=== PATIENT | female | born 1990 | race Caucasian/White ===

== ENCOUNTER → 2020-04-15 09:10 | Outpatient (BNVA) | payer OTHER, SELFPAY | PROVIDERS: Family Provider Family Medicine; PCP Family Medicine; Visit Provider Nurse Practitioner Psychiatric/Mental Health | DX: Z03.89 Encounter for observation for other suspected diseases and conditions ruled out (principal); Z79.899 Other long term (current) drug therapy | CPT/HCPCS: 80053; 80061; 82306; 82607; 83036; 84443 ==

== ENCOUNTER → 2021-06-29 09:31 | Outpatient (BNVA) | payer SELFPAY | PROVIDERS: Family Provider Family Medicine; PCP Family Medicine; Visit Provider Nurse Practitioner Psychiatric/Mental Health | DX: Z03.89 Encounter for observation for other suspected diseases and conditions ruled out (principal); F33.2 Major depressive disorder, recurrent severe without psychotic features; F15.21 Other stimulant dependence, in remission; F41.1 Generalized anxiety disorder | CPT/HCPCS: 80053; 80061; 83036 ==

== ENCOUNTER 2022-12-24 12:22 | Emergency (ER) | payer SELFPAY ==
--- NOTE | 2022-12-24 12:47 | ED_ITS ---
HPI - Extremity Injury (Upper) General: Chief Complaint: Wound/Laceration Stated Complaint: right hand thumb laceration Time Seen by Provider: 12/24/22 12:46 Source: patient Mode of arrival: ambulatory Limitations: no limitations History of Present Illness: Patient is a 32-year-old female [id number] individual here for concerns of a partial right thumb amputation that she sustained just prior to arrival after she got the distal end of her right thumb caught in a portion of tractor equipment that was spinning. Last tetanus is unknown. Bleeding controlled at this time. complaint: injury to: right and finger Onset (ago): hour(s) Other Extremity Injury: Right: fingers (thumb) Other injuries: none Handedness: right Place: home Severity: severe Relieving factors: none Exacerbating factors: none Context: direct blow, laceration and crush Associated symptoms: Reports no associated symptoms; Denies neck pain Review of Systems GI: Reports: nausea; Denies: abdominal pain, vomiting or diarrhea Musc: Reports: extremity pain (R thumb); Denies: neck pain, back pain, extremity swelling, joint pain or joint swelling Neuro: Denies: numbness in extremities or sensory changes [facility] ED PFSH: Medical History Amphetamine substance use disorder, moderate, in sustained remission Generalized anxiety disorder Major depressive disorder, recurrent severe without psychotic features Social History Smoking and tobacco/nicotine status: former use of tobacco/nicotine Physical Exam Const: COMMON NORMALS: average body habitus, patient oriented x3, no limitations, healthy appearing, alert and well nourished GENERAL APPEARANCE: cooperative and in distress (nauseous; in distress due to pain) ORIENTATION/CONSCIOUSNESS: Yes awake, Yes oriented to person, Yes oriented to place and Yes oriented to time Extremity: GENERAL: Yes normal exam except as noted RIGHT UPPER EXTREMITY: Yes hand & digits (see below) Right hand and digits: Yes neurovascular exam (normal) OTHER: Patient has a distal tip amputation to her right thumb involving her entire nail and distal phalanx. There is extensive damage to the underlying nailbed and exposed bone. Patient does have amputated portion on ice but there is nothing salvagable-tissue is significantly contused and non-viable. Neuro: COMMON NORMALS: patient oriented x3 SENSORIUM/ORIENTATION: Yes alert, Yes oriented to person, Yes oriented to place and Yes oriented to time Course Consultations: Consultation #1: Dr. Ramirez-agreed with plan to update tetanus, IV abx, irrigation/dress wound (wet to dry) and will see this week in office with plan for revision amputation Vital Signs: Vital signs: Vital Signs Temperature 98.3 F 12/24/22 12:53 Pulse Rate 71 12/24/22 12:53 Respiratory Rate 20 H 12/24/22 13:42 Blood Pressure 102/49 12/24/22 12:53 Pulse Oximetry 100 12/24/22 13:42 Oxygen Delivery Me thod Room Air 12/24/22 12:53 MDM - Extremity Injury (Upper) Medical Decision Making Patient here with a distal right thumb amputation. There is a comminuted fracture of the distal end of her distal phalanx. Soft tissue/nail amputation. Patient's tetanus was updated. She was given 2g IV Ancef. Wound was copiously irrigated. Wet-to-dry dressing was placed. I spoke to Dr. Ramirez who will follow-up in office this week with plan for revision amputation. Return to ED precautions given. She will be provided scripts for pain medications/antibiotics. Lab Data Radiology Impressions Finger X-Ray 12/24/22 12:53 IMPRESSION: Comminuted fracture of the distal end of the distal phalanx of the thumb with associated soft tissue amputation. All radiology interpretation(s) finalized by discharge Discharge Plan Discharge Patient Disposition: Home Clinical Impression: Amputation of finger of right hand including thumb Qualifiers: Encounter type: initial encounter Qualified Code(s): S68.119A - Complete traumatic metacarpophalangeal amputation of unspecified finger, initial encounter Condition: Stable Prescriptions: New hydrocodone-acetaminophen 5-325 mg tablet 1 tab PO Q6H PRN (Reason: pain) Qty: 14 0RF cephalexin 500 mg capsule 500 mg PO Q6H 7 Days Qty: 28 0RF No Action cholecalciferol (vitamin D3) 1,250 mcg (50,000 unit) capsule 1,250 mcg PO DAILY bupropion HCl [Wellbutrin XL] 150 mg tablet extended release 24 hr 150 mg PO QAM Qty: 30 4RF Rx Instructions: Take one tablet every morning bupropion HCl [Wellbutrin XL] 300 mg tablet extended release 24 hr 300 mg PO QAM Qty: 30 4RF Rx Instructions: Take one tablet every morning venlafaxine [Effexor XR] 150 mg capsule,extended release 24hr 150 mg PO QAM Qty: 30 4RF Rx Instructions: Take one capsule every morning venlafaxine [Effexor XR] 75 mg capsule,extended release 24hr 75 mg PO QAM Qty: 30 4RF Rx Instructions: Take one capsule every morning aripiprazole [Abilify] 2 mg tablet 2 mg PO .7 pm Qty: 30 4RF Rx Instructions: Take one tablet at 7 pm Discharge Orders: Discharge ED (Routine); Ordered 12/24/22 Ordered By: Pamella Serrano Patient Instructions: Opioid Safety, Pain Management Activity Restrictions/Additional Instructions: As we discussed keep wound clean with warm soap and water and continue to keep a wet to dry dressing on finger. Case management should reach out to you shortly to set you up with your follow up appointment with Dr. Ramirez this week. Plan will be for a revision/amputation. Use your pain medications as needed and start/fill your antibiotics immediately. Coding Level of Care Code ED [employer] for Andre Cortez
[2022-12-24 12:53] VITALS: BP 102/49; PULSE 71; RESP 18; TEMP 36.8; O2SAT 98
--- NOTE | 2022-12-24 12:53 | XRR_ITS ---
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 Views: Minimum 2 views. COMPARISON: No relevant prior studies available. FINDINGS: Bones/joints: There is a severely comminuted diastatic fracture of the distal half of the distal phalanx of the thumb with associated soft tissue amputation. The thumb is otherwise normal. Soft tissues: See Bones/joints finding. XR/XR finger RT min 2V 14098 IMPRESSION: Comminuted fracture of the distal end of the distal phalanx of the thumb with associated soft tissue amputation.
--- NOTE | 2022-12-24 13:24 | DCPLANNER ---
Referral was sent to ortho on 12/24 at 1326. Clinic to contact patient
[2022-12-24] MEDS: ondansetron 2 mg/ML SDV 2 mL 4 MG IVP (13:40)
[2022-12-24 13:42] VITALS: RESP 20; O2SAT 100
[2022-12-24] MEDS: morphine 4 mg/mL SDV 1 mL IVP (13:42)
[2022-12-24] MEDS: ceFAZolin 2,000 MG in sodium chloride 0.9% (plus) 50 ML 100 MG IV (13:45)
[2022-12-24] MEDS: tetanus-dipt-pertussis 0.5 mL SDV IM (13:51)
[2022-12-24 14:25] VITALS: RESP 20; O2SAT 99
[2022-12-24] MEDS: HYDROmorphone 1 mg/mL INJ 1 mL 0.5 MG IVP (14:25)
[2022-12-24 14:50] VITALS: BP 83/53; PULSE 69; O2SAT 100
== END 2022-12-24 15:27 | disposition home or self-care (01) ==
PROVIDERS: Emergency Provider Physician Assistant
DX: S68.011A Complete traumatic metacarpophalangeal amputation of right thumb, initial encounter (principal); Z87.891 Personal history of nicotine dependence; W30.9XXA Contact with unspecified agricultural machinery, initial encounter; Z23 Encounter for immunization
CPT/HCPCS: 73140; 90471; 90715; 96365; 96375; 99284; J0690; J1170; J2270; J2405

== ENCOUNTER 2022-12-26 13:55 | Day surgery (SDC) | payer SELFPAY ==
[2022-12-26] VITALS (7 sets, daily range): BP systolic 120–136; BP diastolic 79–91; PULSE 68–106; RESP 16–18; TEMP 36.1–37.1; O2SAT 95–100; BMI 27.3
--- NOTE | 2022-12-26 | XR_ITS ---
WS: [id number] Exam: XR finger RT min 2V 90700 Date/Time of Exam: 12/26/2022 12:00 AM Reason For Exam: TOBIAS PICS C ARM images of the RIGHT thumb were obtained for intraoperative purposes.
[2022-12-26 14:27] LABS: OR HCG Qualitative Urine Negative (Negative)
[2022-12-26] MEDS: sodium chloride 0.9% 1,000 ML 30 ML IV (14:35)
[2022-12-26] MEDS: HYDROmorphone 1 mg/mL INJ 1 mL 0.5 MG IVP (14:37)
[2022-12-26] MEDS: ketorolac 30 mg/mL INJ IVP (15:40)
[2022-12-26] MEDS: acetaminophen 1,000 MG/100 ML PIGGYBACK 400 MG IV (15:42)
--- NOTE | 2022-12-26 15:42 | W.PM.OPSUD ---
Surgery/Procedure H&P Update DATE OF PROCEDURE: December 26, 2022 DATE H&P PERFORMED: 12/25/22 H&P UPDATE INFORMATION: I have reviewed H&P completed within last 30 days, I have examined patient prior to procedure and No changes to prior documentation PREOP DIAGNOSIS: Right thumb traumatic amputation PRIMARY INDICATION FOR PROCEDURE: Right thumb traumatic amputation PLANNED PROCEDURE: Operation Date: 12/26/22 16:30 Proposed Procedures p Right Thumb Debridement Upper Extremity And Irrigation(Right) - DO catalina Reid Right Thumb revision Amputation Finger(Right) - Cedric Ramirez DO
--- NOTE | 2022-12-26 16:35 | ANES.PREANE2 ---
Pre-Anesthetic Assessment Height/Weight: Height 1.75 m Weight 83.915 kg Temp Pulse Resp BP Pulse Ox O2 Del Method 98.7 F 85 16 132/79 98 Room Air 12/26/22 14:15 12/26/22 14:15 12/26/22 14:37 12/26/22 14:15 12/26/22 14:37 12/26/22 14:15 Preop Diagnosis: Right thumb traumatic amputation Operation Date: 12/26/22 16:30 Proposed Procedures p Right Thumb Debridement Upper Extremity And Irrigation(Right) - Cedric Ramirez DO s Right Thumb revision Amputation Finger(Right) - Cedric Ramirez DO Familial anesthetic complications: none Was Beta Kalie taken within 24 hours: N/A Was Clonidine taken within 24 hours: N/A Last intake: Intake Last Liquid Date 12/26/22 Last Liquid Time 10:30 Last Solid Date 12/25/22 Last Solid Time 19:00 Social No alcohol and No tobacco h/o amphetamine Exam alert, oriented x 3, clear to auscultation bilaterally and regular rate & rhythm Airway Submandibular: within normal limits Cervical ROM: within normal limits Mallampati: Class II Dentition: chipped Neuropsych Anxiety and Depression Anesthetic Plan ASA status: 2 Anesthesia: General Medications/Allergies Home Medications Medication Instructions Recorded Confirmed Last Taken Type cholecalciferol (vitamin D3) 1,250 1,250 mcg PO DAILY 04/29/19 12/26/22 12/26/22 History mcg (50,000 unit) capsule aripiprazole 2 mg tablet (Abilify) 2 mg PO .7 pm #30 tabs 02/01/22 12/26/22 12/25/22 Rx bupropion HCl 300 mg 24 hr tablet, 300 mg PO QAM #30 tabs 02/01/22 12/26/22 12/26/22 Rx extended release (Wellbutrin XL) venlafaxine 150 mg 150 mg PO QAM #30 caps 02/01/22 12/26/22 12/26/22 Rx capsule,extended release 24 hr (Effexor XR) venlafaxine 75 mg capsule,extended 75 mg PO QAM #30 caps 02/01/22 12/26/22 12/26/22 Rx release 24 hr (Effexor XR) cephalexin 500 mg capsule 500 mg PO Q6H 7 days #28 caps 12/24/22 12/26/22 12/26/22 Rx hydrocodone 10 mg-acetaminophen 1 tab PO Q6H PRN pain #20 tabs 12/26/22 Unknown Rx 325 mg tablet ondansetron 4 mg disintegrating 4 mg PO Q8H PRN nausea and 12/26/22 Unknown Rx tablet vomiting 3 days #9 tabs Allergies Allergy/AdvReac Type Severity Reaction Status Date / Time No Known Allergies Allergy Verified 12/26/22 14:11 Current Medications Generic Name Dose Route Start Last Admin Trade Name Leninq PRN Reason Stop Dose Admin Hydromorphone HCl 0.5 mg 12/26/22 14:03 12/26/22 14:37 Hydromorphone 1 Mg/Ml Inj 1 Ml IVP 0.5 mg ONCE PRN Administration Phase II postop pain Sodium Chloride 1,000 mls @ 30 mls/hr 12/26/22 14:15 12/26/22 14:35 Sodium Chloride 0.9% IV 12/27/22 14:14 30 mls/hr .Q24H ROSY Administration PFSH Anesthesia Medical History Amphetamine substance use disorder, moderate, in sustained remission Generalized anxiety disorder Major depressive disorder, recurrent severe without psychotic features Social History Smoking and tobacco/nicotine status: former use of tobacco/nicotine Female Reproductive History Date of last menstrual period: 12/19/22 Data Anesthesia Cardiac Studies: No Data to Display
[2022-12-26] MEDS: ceFAZolin 2,000 MG in sodium chloride 0.9% (plus) 50 ML 100 MG IV (17:02)
[2022-12-26] MEDS: ceFAZolin 1,000 mg SDV 1000 MG IRRIGATION (17:33)
--- NOTE | 2022-12-26 18:23 | W.PM.BPON ---
Date of Procedure: [December 26, 2022] Surgeon: [Dr. Ramirez, DO] Automotive Parts Advisor(s): [Petr Ramirez physician associate] Procedure(s) performed: [Right thumb irrigation and debridement with revision amputation, Rotational flap closure] Findings of the procedure(s): [Traumatic amputation distal phalanx of right thumb] Estimated blood loss: [1 mL] Specimen(s) removed: [Bone fragments of distal phalanx not sent for testing] Post-operative diagnosis: [Traumatic amputation distal phalanx of right thumb]
--- NOTE | 2022-12-26 18:27 | PM.PACU ---
PACU note Narrative: Patient is a 32-year-old female just underwent a revised amputation of right thumb. Patient transferred to PACU in stable condition. Pain is well controlled. Dressing and splint on hand is dry and in place. Patient's other fingers are warm and well-perfused. Patient can wiggle fingers. normal cap refill under 2 seconds. Patient has normal elbow range of motion. Unable to assess sensation due to residual localized anesthetic. Exam: awake Disposition: discharged
--- NOTE | 2022-12-26 18:30 | PM.OP ---
Operative Report Date of procedure: December 26, 2022 Pre-op diagnosis: Right thumb traumatic amputation distal tip Post-op diagnosis: Same, with comminution distal phalanx, disruption of germinal matrix right thumb Post-op findings: See operative report Procedure done: Right thumb irrigation & debridement (2cm x 1cmx 0.5cm) skin subcutaneous tissue fat and bone Right thumb revision amputation Right thumb rotational skin flap closure Specimens removed/disposition: Distal phalanx bony fragments excised as well as nonviablel skin Surgeon: Cedric Ramirez DO Addiction Treatment Counselor: Petr Ramirez PA-C: ARTEM was necessary for assistance in this case with execution of the procedure with appropriate thumb positioning as well as skin retraction as well as assistance in wound closure and dressing application Estimated blood loss (mL): 1 44mins IV fluids: See anesthesia record Complications: None Findings: See operative report Condition: stable Disposition: same day Brief History: Patient presents to the office today outpatient setting for workup of her right thumb traumatic amputation at the distal phalanx this is distal to the DIP joint as well as appears to be distal to the FPL and EPL tendon insertions. Open wound noted with a radial oblique amputation and a prominent volar flap. We talked about treatment options at this point in time given the multiple fracture fragments and exposed bone will recommend a right thumb irrigation debridement possible revision amputation we talked about this in detail patient is very active and needs to get back to working she would like to just have a revision amputation with primary closure if possible. Talked about this and possible flap closures understanding risk of surgery she elects proceed all questions answered at this time is here today to proceed with a right thumb irrigation and debridement with possible revision amputation. Procedure: Patient seen evaluated preoperative holding area. Consent was reviewed and signed with patient correct extremity/digit was marked. Patient is evaluated by anesthesia once cleared for surgery she was taken back to the operative suite she was placed in The [facility] in Supine Position Armboard Applied to the Right Upper Extremity Nonsterile Tourniquet Applied to the Right Upper Arm. Patient Underwent Anesthesia per the HD Department Wound Appropriately Anesthetized the Patient Was Prepped and Draped in Standard Orthopedic Fashion. Final Timeout Performed. Patient Received Appropriate Preoperative Antibiotics. Patient under Sterile Aseptic Technique Underwent a Right Thumb Digital Block. I Utilized a Sterile Turnicot at the Base of the Finger for My Procedure. Finger turnicot was placed. I then began my evaluation of the traumatic amputation. Patient had a radial oblique nature that went directly through the germinal matrix there was some remanent of the matrix noted. At this point in time in order to prevent a nail deformity complete matrix excision through sharp scalpel excision as well as electrocautery was used to burn any remanent of the germinal matrix. I then evaluated the bony fragments. All sharp loose devitalized bony fragments were excised I performed a standard irrigation debridement of all nonviable tissue of skin subcutaneous tissue fascia as well as bone. The size was roughly 2 cm x 1 cm x 0.5 cm at this point in time I removed the bony fragments of the remanent of the stump did have multiple sharp edges I utilized a rongeur as well as a rasp to contour this and as well as to shorten this below the soft tissue amputation to accommodate for possible closure primarily. I took this back to the bases of where the tendinous insertions both of the EPL and FPL were as well as to accommodate for DIP motion still. At this point in time I then thoroughly irrigated the wound bed. I performed traction neurectomies of the digital nerves distally as well as electrocautery with bipolar of the neurovascular structures distally. At this point in time patient had a flap both volar and radial and as result I had to perform some releases and was able to perform a rotational flap of the remanent of viable tissue for appropriate well-padded closure once this was appeared to be appropriate size, finger turnicot was removed hemostasis satisfactory. I then placed simple interrupted nylon stitches to close the incision site. I then subsequently placed Xeroform 4 x 4's Curlex/soft roll as well as a padded splint. Patient was then subsequently awakened from anesthesia and taken to PACU in stable condition. Disposition: Patient taken back in stable condition recovering well. Patient will receive appropriate discharge instruction as well as pain medication postoperatively she will follow-up with me in the office in roughly 2 weeks for suture removal. Patient understands agrees with current plan. Questions answered.
[2022-12-26] MEDS: HYDROcodone-acetaminophen 10-325 mg Tablet 1 TAB PO (18:43)
--- NOTE | 2022-12-26 22:33 | ANE.PACU2 ---
Inpatient post-anesthesia follow up: Airway intact: Yes Vital signs: Temperature 98.7 F Pulse Rate 68 Respiratory Rate 16 Blood Pressure 133/91 Pulse Oximetry 98 Oxygen Delivery Me thod Room Air Oxygen Flow Rate Fraction of Inspir ed Oxygen Hydration adequate: Yes Nausea and vomiting: No Pain level: 1 Mental status: Baseline
== END 2022-12-26 19:11 | disposition home or self-care (01) ==
PROVIDERS: Anesthesiology; Visit Provider Student in an Organized Health Care Education/Training Program
PROC: (CPT 26952; principal; 2022-12-26 16:10)
PROC: (CPT 26951; 2022-12-26 16:10)
DX: S68.118A Complete traumatic metacarpophalangeal amputation of other finger, initial encounter (principal); W23.0XXA Caught, crushed, jammed, or pinched between moving objects, initial encounter
CPT/HCPCS: 26952; 73140; 76000; 81025; 84703; J0131; J0690; J1170; J1885; J2405; J3010; J7030

== ENCOUNTER 2024-07-11 12:26 | Emergency (ER) | payer SELFPAY ==
[2024-07-11] VITALS (9 sets, daily range): BP systolic 120–133; BP diastolic 71–83; PULSE 84–116; RESP 17–20; TEMP 36.9; O2SAT 95–100
--- NOTE | 2024-07-11 13:26 | XRR_ITS ---
PROCEDURE INFORMATION: Exam: XR Lumbosacral Spine Exam date and time: 07/11/2024 2:18 PM Age: 34 years old Clinical indication: Low back pain and lumbago with sciatica; Bilateral; Prior surgery; Surgery date: 6+ months; Surgery type: (x2); PT states severe low back pain that shoots down both legs to feet, inability to move lt foot, no known injury; Additional info: Lower back pain TECHNIQUE: Imaging protocol: Radiologic exam of the lumbosacral spine. Views: 2 or 3 views. COMPARISON: No relevant prior studies available. FINDINGS: Bones/joints: Visualized bony cortical margins and articulations appear to be intact and in the range of normal. No acute fracture. Minimal convexity of the thoracolumbar spine is directed to the right centering in the upper lumbar region. Soft tissues: Unremarkable. Other findings: A markedly prominent amount of granular stool like debris is seen along the ascending and transverse portions of the colon and less so in the rectosigmoid region. This does somewhat obscure bony detail particularly on the frontal projection. XR/XR lumbar spine 2-3V* [id number] IMPRESSION: 1. No acute osseous plain-film findings. 2. Prominent stool burden.
--- NOTE | 2024-07-11 13:26 | XRR_ITS ---
PROCEDURE INFORMATION: Exam: XR Chest Exam date and time: 07/11/2024 2:03 PM Age: 34 years old Clinical indication: On breathing; PT states severe upper back pain that worsens while breathing, making it difficult to achieve full inspiration; Additional info: Rib pain TECHNIQUE: Imaging protocol: Radiologic exam of the chest. Views: 2 views. COMPARISON: No relevant prior studies available. FINDINGS: Lungs: Blunting of the left costophrenic angle is noted on frontal and lateral views. Also seen is a vague area of increased density along the periphery of the left upper to mid lung region measuring approximately 2 cm in size. This overlies the anterior aspects of the 2nd and 3rd ribs. No consolidation. Pleural spaces: The right costophrenic angle is well defined on frontal and lateral views. Blunting of the left costophrenic angle is noted. No pneumothorax. Heart/Mediastinum: Mild prominence of the cardiac silhouette is seen which may be due in part to epicardial lipomatous collections/fat pads. Bones/joints: Suspected pathologic fracture noted along the posterolateral aspect of the left 3rd rib corresponding with the aforementioned pleural like increased density. Other findings: Overlying soft tissues are prominent and obscure resolution due to diminished penetration. XR/XR chest 2V* [id number] IMPRESSION: 1. Left posterolateral 3rd rib pathologic fracture with associated pleural thickening question neoplasia/metastatic disease versus subacute posttraumatic etiology warranting further clinical correlation and follow-up. 2. Mild left pleural effusion.
[2024-07-11] MEDS: oxyCODONE-APAP 5-325 mg Tablet 1 TAB PO (13:43)
[2024-07-11] MEDS: ketorolac 30 mg/mL INJ 60 MG IM (13:44)
[2024-07-11] MEDS: methocarbamol 750 mg Tablet 1500 MG PO (13:44)
--- NOTE | 2024-07-11 13:45 | ECG_ITS ---
Geckoboard Test Date: 2024-07-11 Pat Name: Mariella Tinajero Department: Room: Gender: Female Manager Of Financial Reporting: : 1990 Requested By: Jose Marie Order Number: [id number] Reading MD: MARITZA LOOMIS Measurements Intervals [place] Rate: 109 P: 57 IA: 133 QRS: 64 QRSD: 94 T: 14 QT: 317 QTc: 428 Interpretive Statements SINUS TACHYCARDIA LEFT ATRIAL ENLARGEMENT [-0.15mV P-WAVE IN V1/V2] POSSIBLE RIGHT VENTRICULAR CONDUCTION DELAY [RSR (QR) IN V1/V2] NONSPECIFIC T-WAVE ABNORMALITY No previous ECG available for comparison Electronically Signed On 07-13-2024 19:06:28 CDT by MARITZA LOOMIS [email or web address]
--- NOTE | 2024-07-11 14:30 | W.ED.BACK ---
HPI - Back Pain/Injury General: Chief Complaint: Back Pain/Injury Stated Complaint: shooting pains through out from neck down Time Seen by Provider: 07/11/24 12:44 History of Present Illness: 34-year-old female is presenting with lower back pain for the past 2 weeks denies any associated falls or trauma, pain rating into bilateral lower extremities thighs, some numbness and weakness in the left lower extremity but no bowel or bladder incontinence no fever or chills. She took veterinary dexamethasone and NSAIDs without any improvement in her symptoms. She took a Robaxin without improvement and her doctor prescribed her prednisone which she started taking over the past 3 days without improvement as well. She states now the pain is going up her thoracic back and rating into her left chest and so she presents for evaluation. She also reports bilateral lower extremity edema and this is new for her. She denies any shortness of breath denies any abdominal pain nausea vomiting diarrhea or urinary symptoms. Related Data Home Medications ?Medication ?Instructions ?Recorded ?Confirmed prednisone 20 mg tablet 20 mg PO QAM x10d 07/11/24 07/11/24 Previous Rx's ?Medication ?Instructions ?Recorded bupropion HCl 300 mg 24 hr tablet, 300 mg PO QAM #30 tabs 02/01/22 extended release (Wellbutrin XL) venlafaxine 150 mg 150 mg PO QAM #30 caps 02/01/22 capsule,extended release 24 hr (Effexor XR) Allergies Allergy/AdvReac Type Severity Reaction Status Date / Time No Known Allergies Allergy Verified 02/28/23 09:17 Review of Systems Narrative: Const: no fever, no chills Skin: no rashes Eyes: denies blurry vision ENMT: denies nasal congestion, throat pain Card: + chest pain, no palpitations, + edema Resp: no shortness of breath, no cough GI: no abdominal pain, no nausea, no vomiting, no diarrhea : no urinary frequency, no urgency, no dysuria, no flank pain Musc: no neck pain, + back pain Neuro: no headache(s), no confusion, + numbness, + motor weakness [facility] PFSH: Medical History Amphetamine substance use disorder, moderate, in sustained remission Generalized anxiety disorder Major depressive disorder, recurrent severe without psychotic features Social History Smoking and tobacco/nicotine status: former use of tobacco/nicotine Alcohol intake: current Alcohol intake frequency: holidays/special occasions only Physical Exam Narrative: EXAM NARRATIVE: PHYSICAL EXAM GEN: +uncomfortable from pain, poor hygiene Head: normocephalic, atraumatic Eyes: pupils, equal, round and reactive to light, extraocular movements are intact, no conjunctival redness or discharge. Ears: external ears are normal. Nose: Normal nares. Mouth and throat: MMM. Normal gums, mucosa, palate. NECK: no midline c spine tenderness, Supple, with no masses. CV: RRR, no m/r/g. LUNGS: CTAB, no w/r/c. ABD: Soft, NT/ND, NBS, no masses or organomegaly. SKIN: Warm, well perfused. No skin rashes or abnormal lesions. MSK: diffuse tenderness of lower thoracic and lumbar but no obvious midline t or l spine tenderness, able to straight leg raise bilaterally albeit limited in LLE due to pain otherwise extremities No deformity, no tenderness, normal ROM, no edema NEURO: alert and oriented x 3, normal speech, +LLE strength limited by pain, some numbnessin LLE although able to feel light touch otherwise no motor or sensory deficits, no focal neuro deficits. PSYCH: Good Judgment. Pleasant, cooperative. appropriate mood. Course Reevaluation(s): Reevaluation #1: Workup remarkable for multiple pelvic fractures including bilateral sacral alar fracture and right sided pelvis inferior and superior pubic rami fractures, she has a questionable deformity of the C7 vertebra, she has left third rib fractures 9 rib fracture on the right, I spoke with the patient multiple times including by herself she denies any falls or significant trauma that would have led to this. She has no blood clotting disorders no bleeding diathesis. Her labs demonstrate mild lead decreased platelets, elevated transaminase's, she does have some elevation proBNP and some dilatation of her right pulmonary artery but no PEs. MRI of the lumbar spine demonstrates spinal epidural hematoma versus fluid collection from S2-L2, as we do not have neurosurgery here patient is plan to transfer. [facility] does not have any beds available, case discussed with neurosurgery Dr. Coronel who recommends discussion with ER team at [facility], Case discussed with ER Dr. Randolph who accepts patient for transfer from ED to ED. Time: 19:23 Vital Signs: Vital signs: Vital Signs Temperature 98.4 F 07/11/24 12:34 Pulse Rate 96 07/11/24 18:15 Respiratory Rate 20 H 07/11/24 18:15 Blood Pressure 123/83 07/11/24 18:15 Pulse Oximetry 98 07/11/24 18:15 Oxygen Delivery Me thod Room Air 07/11/24 18:15 MDM - Back Pain/Injury Medical Decision Making Patient initially evaluated with a chest x-ray and lumbar x-ray given no history of trauma and given a dose of IM Toradol, Robaxin and pain medicine which reduced her pain somewhat however upon standing and twisting her pain returned. Additional imaging of the chest x-ray demonstrated a ?Pathologic left third rib fracture and so additional imaging with CT chest abdomen pelvis performed. Given her persistent numbness and weakness in the left lower extremity MRI of the thoracic and lumbar spine added. Labs 07/11/24 14:58 07/11/24 14:58 Radiology Impressions Chest X-Ray 07/11/24 13:26 IMPRESSION: 1. Left posterolateral 3rd rib pathologic fracture with associated pleural thickening question neoplasia/metastatic disease versus subacute posttraumatic etiology warranting further clinical correlation and follow-up. 2. Mild left pleural effusion. Lumbar Spine X-Ray 07/11/24 13:26 IMPRESSION: 1. No acute osseous plain-film findings. 2. Prominent stool burden. Chest/Abdomen/Pelvis CT 07/11/24 15:42 IMPRESSION: 1. Comminuted moderately displaced left lateral 3rd rib fracture with likely small pulmonary contusion involving the subjacent lung. Mild pleural thickening also seen in the vicinity which may be posttraumatic. 2. Nondisplaced right posterior 9th rib fracture appears subacute with some periosteal new bone formation. 3. Bibasilar opacities favor atelectasis. Superimposed infection not entirely excluded. 4. Trace left pleural fluid. 5. Mildly dilated main pulmonary artery can be seen with pulmonary hypertension. IMPRESSION: 1. Comminuted, mildly displaced fracture of the left sacral ala with extension to the sacroiliac joint. 2. Nondisplaced fracture of the right sacral ala with extension of the sacroiliac joint. 3. Comminuted fracture of the right superior pubic ramus with adjacent hematoma. 4. Mildly displaced fracture of the right inferior pubic ramus with the adjacent hematoma. 5. Splenomegaly. Lumbar Spine MRI 07/11/24 15:42 IMPRESSION: 1. Sacral fractures involving the bilateral sacral ala and S2 with bone marrow edema consistent with acute/subacute fractures. 2. Left erector spinae multiloculated collection with mild surrounding edema extending between L3 and S2 levels that might represent a hematoma. However superimposed infection is not totally excluded. 3. Posterior epidural collection extending from S2 to the L2 level causing multilevel severe thecal sac compression. This most likely represents epidural hematoma. Superimposed infection is not excluded. Thoracic Spine MRI 07/11/24 15:42 IMPRESSION: 1. No acute posttraumatic changes in the thoracic spine. 2. No significant spinal cord compression or neural foraminal stenosis. Laboratory Results WBC 7.69 10^3/uL (3.29-11.43) 07/11/24 14:58 RBC 3.77 10^6/uL (3.85-5.65) L 07/11/24 14:58 Hgb 11.10 g/dL (11.27-16.99) L 07/11/24 14:58 Hct 34.4 % (36-47) L 07/11/24 14:58 MCV 91.2 fl (85-98) 07/11/24 14:58 MCH 29.4 pg (27-33) 07/11/24 14:58 MCHC 32.3 g/dL (30-55) 07/11/24 14:58 RDW 13.3 % (12.1-15.1) 07/11/24 14:58 Plt Count 124 10^3/cmm (157-399) L 07/11/24 14:58 MPV 10.0 fL (7.4-10.4) 07/11/24 14:58 Neut % (Auto) 92.5 % 07/11/24 14:58 Lymph % (Auto) 1.7 % 07/11/24 14:58 [place] % (Auto) 1.7 % 07/11/24 14:58 Eos % (Auto) 1.0 % 07/11/24 14:58 Baso % (Auto) 0.8 % 07/11/24 14:58 Neut # (Auto) 7.11 10^3/uL (1.8-7.7) 07/11/24 14:58 Lymph # (Auto) 0.1 10^3/uL (0.8-4.8) L 07/11/24 14:58 [place] # (Auto) 0.1 10^3/uL (0.2-0.9) L 07/11/24 14:58 Eos # (Auto) 0.1 10^3/uL (0.0-0.8) 07/11/24 14:58 Baso # (Auto) 0.1 10^3/uL (0.0-0.1) 07/11/24 14:58 Nucleated RBC % (auto) 0 % 07/11/24 14:58 Nucleated RBCs # 0.0 /100WBC 07/11/24 14:58 Sodium 142 mmol/L (136-145) 07/11/24 14:58 Potassium 4.2 mmol/L (3.5-5.1) 07/11/24 14:58 Chloride 104 mmol/L (98-107) 07/11/24 14:58 Carbon Dioxide 25 mmol/L (22-29) 07/11/24 14:58 Anion Gap 17.2 (5-19) 07/11/24 14:58 BUN 22 mg/dL (6-20) H 07/11/24 14:58 Creatinine 0.7 mg/dL (0.5-0.9) 07/11/24 14:58 GFR Calculation 94.7 mL/min (90-130) 07/11/24 14:58 Glucose 146 mg/dL (65-115) H 07/11/24 14:58 Calculated Osmolality 300 mOsm/kg (285-295) H 07/11/24 14:58 Calcium 9.0 mg/dL (8.5-10.5) 07/11/24 14:58 Magnesium 2.0 mg/dL (1.7-2.3) 07/11/24 14:58 Total Bilirubin 0.3 mg/dL (0.15-1.2) 07/11/24 14:58 AST 50 U/L (0-32) H 07/11/24 14:58 ALT 96 U/L (0-33) H 07/11/24 14:58 Alkaline Phosphatase 244 U/L (35-105) H 07/11/24 14:58 Creatine Kinase 83 U/L (26-192) 07/11/24 14:58 Troponin T Baseline 12 ng/L (0-10) H 07/11/24 14:58 Troponin T 120 Minute 13.27 ng/L (0-10) H 07/11/24 18:02 Delta Troponin T 1.27 ABS# (0-10) 07/11/24 18:02 NT-Pro-B Natriuret Pep 433 pg/mL (0-125) H 07/11/24 14:58 Total Protein 5.5 g/dL (6.6-8.7) L 07/11/24 14:58 Albumin 3.1 g/dL (3.5-5.2) L 07/11/24 14:58 Globulin 2.4 g/dL (1.3-4.6) 07/11/24 14:58 HCG, Qual Negative (Negative) 07/11/24 14:58 Ethyl Alcohol < 10 mg/dL (0-10) 07/11/24 14:58 All radiology interpretation(s) finalized by discharge Discharge Plan Discharge Patient Disposition: Xfer Short-Term Hosp Clinical Impression: Spinal epidural hematoma, Fracture of left third rib, Compression fracture of C7 vertebra, Fracture of right ninth rib, Multiple pelvic fractures Condition: Stable Print Language: Armenian Coding Level of Care Code ED Certified Midwife for Andre Cortez
[2024-07-11] MEDS: morphine 4 mg/mL SDV 1 mL IVP ×2 (15:13→18:06)
--- NOTE | 2024-07-11 15:20 | PC.NURSE ---
Dr. Marie after seeing pt told me to not give the patient fluids due to the edema in her legs.
[2024-07-11 15:22] LABS: Basophils # 0.1 10^3/uL (0.0-0.1); Basophils % 0.8 %; Eosinophils # 0.1 10^3/uL (0.0-0.8); Hematocrit 34.4 % (36-47); Lymphocytes # 0.1 10^3/uL (0.8-4.8); Lymphocytes % 1.7 %; Mean Corpuscular HGB Conc 32.3 g/dL (30-55); Mean Corpuscular Hemoglobin 29.4 pg (27-33); Mean Corpuscular Volume 91.2 fl (85-98); Monocytes # 0.1 10^3/uL (0.2-0.9); Monocytes % 1.7 %; Neutrophils # 7.11 10^3/uL (1.8-7.7); Neutrophils % 92.5 %; Nucleated Red Blood Cells % 0 %; Platelet Count 124 10^3/cmm (157-399); Red Blood Count 3.77 10^6/uL (3.85-5.65); Red Cell Distribution Width 13.3 % (12.1-15.1); White Blood Count 7.69 10^3/uL (3.29-11.43)
[2024-07-11 15:34] LABS: HCG, Serum Qual Negative (Negative)
--- NOTE | 2024-07-11 15:42 | MRR_ITS ---
PROCEDURE INFORMATION: Exam: MR Thoracic Spine Without Contrast Exam date and time: 07/11/2024 5:16 PM Age: 34 years old Clinical indication: Pain in thoracic spine; Without myelpathy or radiculopathy; Additional info: Back pain TECHNIQUE: Imaging protocol: Magnetic resonance imaging of the thoracic spine without contrast. COMPARISON: MR lumbar spine wo con* [id number] 07/11/2024 4:55 PM FINDINGS: Bones/joints: Moderate degenerative disease of the lower cervical spine. Spinal cord: Normal signal. No cord compression. T1-T2: No significant disc bulge or herniation. No severe spinal canal stenosis. No significant neural foraminal narrowing. T2-T3: No significant disc bulge or herniation. No severe spinal canal stenosis. No significant neural foraminal narrowing. T3-T4: No significant disc bulge or herniation. No severe spinal canal stenosis. No significant neural foraminal narrowing. T4-T5: No significant disc bulge or herniation. No severe spinal canal stenosis. No significant neural foraminal narrowing. T5-T6: No significant disc bulge or herniation. No severe spinal canal stenosis. No significant neural foraminal narrowing. T6-T7: No significant disc bulge or herniation. No severe spinal canal stenosis. No significant neural foraminal narrowing. T7-T8: Central disc protrusion causing mild anterior thecal sac compression. No severe spinal canal stenosis. No significant neural foraminal narrowing. T8-T9: No significant disc bulge or herniation. No severe spinal canal stenosis. No significant neural foraminal narrowing. T9-T10: No significant disc bulge or herniation. No severe spinal canal stenosis. No significant neural foraminal narrowing. T10-T11: No significant disc bulge or herniation. No severe spinal canal stenosis. No significant neural foraminal narrowing. T11-T12: No significant disc bulge or herniation. No severe spinal canal stenosis. No significant neural foraminal narrowing. T12-L1: No significant disc bulge or herniation. No severe spinal canal stenosis. No significant neural foraminal narrowing. Soft tissues: Mild subcutaneous edema of the posterior lower back. Lungs: Bilateral lower lobe atelectasis. Pleural spaces: Bilateral small pleural effusions. MR/MR thoracic spin wo con* [id number] IMPRESSION: 1. No acute posttraumatic changes in the thoracic spine. 2. No significant spinal cord compression or neural foraminal stenosis.
--- NOTE | 2024-07-11 15:42 | MRR_ITS ---
PROCEDURE INFORMATION: Exam: MR Lumbar Spine Without Contrast Exam date and time: 07/11/2024 4:55 PM Age: 34 years old Clinical indication: Low back pain and sciatica; Bilateral; Additional info: Back pain, lle weakness TECHNIQUE: Imaging protocol: Magnetic resonance imaging of the lumbar spine without contrast. COMPARISON: CR (PELVIS, ) 07/11/2024 2:18 PM FINDINGS: Bones/joints: Vertical fractures of bilateral sacral ala with bone marrow edema and advanced verse component in the S2 vertebral body, consistent with acute fractures there is a collection extending into the left erector spinae muscles measuring 5.4 x 1.8 x 1.3 cm, consistent with a hematoma. Spinal cord: Visualized cord is unremarkable without compression. There is a posterior epidural collection more in the right posterolateral space extending from S2 level L2 level cranially collection measures 6 mm in maximum thickness at the right posterolateral L2-L3 level the collection is causing severe thecal sac compression between L2 and S2 levels. L1-L2: No significant disc bulge or herniation. No severe spinal canal stenosis. No significant neural foraminal narrowing. L2-L3: No significant disc bulge or herniation. No severe spinal canal stenosis. No significant neural foraminal narrowing. L3-L4: No significant disc bulge or herniation. No severe spinal canal stenosis. No significant neural foraminal narrowing. L4-L5: No significant disc bulge or herniation. No severe spinal canal stenosis. No significant neural foraminal narrowing. L5-S1: No significant disc bulge or herniation. No severe spinal canal stenosis. No significant neural foraminal narrowing. Soft tissues: Unremarkable. MR/MR lumbar spine wo con* [id number] IMPRESSION: 1. Sacral fractures involving the bilateral sacral ala and S2 with bone marrow edema consistent with acute/subacute fractures. 2. Left erector spinae multiloculated collection with mild surrounding edema extending between L3 and S2 levels that might represent a hematoma. However superimposed infection is not totally excluded. 3. Posterior epidural collection extending from S2 to the L2 level causing multilevel severe thecal sac compression. This most likely represents epidural hematoma. Superimposed infection is not excluded.
--- NOTE | 2024-07-11 15:42 | CTR_ITS ---
PROCEDURE INFORMATION: Exam: CTA Chest With Contrast Exam date and time: 07/11/2024 4:22 PM Age: 34 years old Clinical indication: Other: Back pain, lower; Right-sided TECHNIQUE: Imaging protocol: Computed tomographic angiography of the chest with contrast. Exam focused on the arteries. 3D rendering (Not supervised by radiologist): MIP and/or 3D reconstructed images were created by the technologist. Radiation optimization: All CT scans at this facility use at least one of these dose optimization techniques: automated exposure control; mA and/or kV adjustment per patient size (includes targeted exams where dose is matched to clinical indication); or iterative reconstruction. Contrast material: OMNI 350; Contrast volume: 100 ml; Contrast route: INTRAVENOUS (IV); COMPARISON: CR (CHEST, ) 07/11/2024 2:03 PM RADIATION DOSE METRICS: Total DLP (mGy-cm): 1382.07 FINDINGS: Pulmonary arteries: Main pulmonary artery is mildly dilated, measuring 3.1 cm. No filling defects to the level of the proximal subsegmental pulmonary arteries. Aorta: Unremarkable. No aortic aneurysm. No aortic dissection. Trachea: Mild mucous secretions in the upper trachea. Ill-defined bibasilar opacities. Lungs: Ill-defined pleural-based opacity along the periphery of the left upper lobe measuring about 1.1 x 1.8 cm (centered on series 9, image 143). Mild pleural thickening in the vicinity. Pleural spaces: Trace left pleural fluid. No right pleural effusion. No pneumothorax. Heart: Unremarkable. No cardiomegaly. No pericardial effusion. Lymph nodes: Calcified left hilar lymph nodes from prior granulomatous disease. No lymphadenopathy by size criteria. Bones/joints: Nondisplaced right posterior 9th rib fracture with some periosteal new bone formation. Comminuted moderately displaced fracture of the left lateral 3rd rib. Mild superior endplate compression deformity at C7. Soft tissues: Unremarkable. PROCEDURE INFORMATION: Exam: CT Abdomen And Pelvis With Contrast Exam date and time: 07/11/2024 4:22 PM Age: 34 years old Clinical indication: Other: Back pain, lower; Right-sided TECHNIQUE: Imaging protocol: Computed tomography of the abdomen and pelvis with contrast. Radiation optimization: All CT scans at this facility use at least one of these dose optimization techniques: automated exposure control; mA and/or kV adjustment per patient size (includes targeted exams where dose is matched to clinical indication); or iterative reconstruction. Contrast material: OMNI 350; Contrast volume: 100 ml; Contrast route: INTRAVENOUS (IV); COMPARISON: CR (PELVIS, ) 07/11/2024 2:18 PM RADIATION DOSE METRICS: Total DLP (mGy-cm): 1082.07 FINDINGS: Liver: Normal. No mass. Gallbladder and biliary ducts: Normal. No calcified stones. No ductal dilation. Pancreas: Mild fatty atrophy of the pancreas. No ductal dilatation. Spleen: Spleen measures 14.4 cm AP. Adrenal glands: Normal. No mass. Kidneys and ureters: Normal. No hydronephrosis. Stomach and bowel: Unremarkable. No obstruction. No mucosal thickening. Appendix: No evidence of appendicitis. Intraperitoneal space: See Bones/joints finding. Vasculature: Unremarkable. No abdominal aortic aneurysm. Lymph nodes: Unremarkable. No enlarged lymph nodes. Urinary bladder: Unremarkable as visualized. Reproductive: Unremarkable as visualized. Bones/joints: Moderate degenerative changes at L5-S1. Comminuted, mildly displaced fracture of the left sacral ala with extension into the sacroiliac joint. Nondisplaced fracture of the anterior aspect of the right sacral ala with extension into the adjacent sacroiliac joint. Areas of patchy sclerosis within the right hemisacrum as well as the left iliac bone. Comminuted fracture of the right superior pubic ramus extending to the pubic symphysis. Mildly displaced fracture of the right inferior pubic ramus. Mild fat stranding in the presacral left hemipelvis, likely related to adjacent sacral fractures. Peritoneal Soft tissues: Mild ill-defined hematoma along the right pelvic bones adjacent to fractures detailed above. CT/CT angio chest w abd pel w con IMPRESSION: 1. Comminuted moderately displaced left lateral 3rd rib fracture with likely small pulmonary contusion involving the subjacent lung. Mild pleural thickening also seen in the vicinity which may be posttraumatic. 2. Nondisplaced right posterior 9th rib fracture appears subacute with some periosteal new bone formation. 3. Bibasilar opacities favor atelectasis. Superimposed infection not entirely excluded. 4. Trace left pleural fluid. 5. Mildly dilated main pulmonary artery can be seen with pulmonary hypertension. IMPRESSION: 1. Comminuted, mildly displaced fracture of the left sacral ala with extension to the sacroiliac joint. 2. Nondisplaced fracture of the right sacral ala with extension of the sacroiliac joint. 3. Comminuted fracture of the right superior pubic ramus with adjacent hematoma. 4. Mildly displaced fracture of the right inferior pubic ramus with the adjacent hematoma. 5. Splenomegaly.
[2024-07-11 15:48] LABS: Troponin(5th) Baseline 12 ng/L (0-10)
[2024-07-11 15:57] LABS: Alanine Aminotransferase 96 U/L (0-33); Albumin Level 3.1 g/dL (3.5-5.2); Alkaline Phosphatase 244 U/L (35-105); Anion Gap 17.2 (5-19); Aspartate Amino Transferase 50 U/L (0-32); Blood Urea Nitrogen 22 mg/dL (6-20); Carbon Dioxide 25 mmol/L (22-29); Chloride 104 mmol/L (98-107); Creatinine Clr Calc Pharmacy 133.3142; Globulin 2.4 g/dL (1.3-4.6); Glomerular Filtration Rate 94.7 mL/min (90-130); Glucose 146 mg/dL (65-115); NT Pro B Type Natriuretic Pept 433 pg/mL (0-125); Osmolality Calculated 300 mOsm/kg (285-295); Potassium 4.2 mmol/L (3.5-5.1); Sodium 142 mmol/L (136-145); Total Bilirubin 0.3 mg/dL (0.15-1.2); Total Protein 5.5 g/dL (6.6-8.7)
[2024-07-11 16:24] LABS: Creatine Phosphokinase 83 U/L (26-192)
[2024-07-11] MEDS: iohexol 350 mg/mL 500 mL Btl (per mL) IV (16:26)
[2024-07-11] MEDS: fentaNYL 50 mcg/mL INJ 2mL IVP ×2 (16:40→20:12)
[2024-07-11 17:38] LABS: Alcohol Level < 10 mg/dL (0-10)
[2024-07-11 18:23] LABS: Troponin 5 2HR 13.27 ng/L (0-10); Troponin 5 2HR Delta 1.27 ABS# (0-10)
--- NOTE | 2024-07-11 20:46 | PC.NURSE ---
1999- report called to [facility] ED per Day SBarbara Rn . 2019- pt given pain medications as pain levels increasing. pt helped ont bed dang per myself and Milagro with no difficulties. 2029- [facility] EMs at bedside for transport. Report given to a&p mechanic. 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 pt in no obvious distress . 2041- [facility] ED called and notified of EMS leaving and possible arrival time.
[2024-07-11 20:52] LABS: Bilirubin Urine Negative (Negative); Blood Urine Trace (Negative); Glucose Urine UA 2+ (Normal); Ketones Urine Negative (Negative); Leukocyte Esterase Urine Negative (Negative); Nitrate Urine Negative (Negative); Protein Urine 2+ (Negative); Urine Appearance Clear (CLEAR); Urine Color Yellow (Yellow)
[2024-07-11 20:57] LABS: Bacteria Urine 1+ /hpf; Hyaline Casts Urine 1.21 /lpf; RBC Urine 0-2 /hpf (0-2); Specific Gravity, Urine 1.067 (1.005-1.030); Squamous Epithelial Cell Urine 0-5 /hpf (0-5); WBC Urine 0-5 /hpf (0-5)
[2024-07-11 20:59] LABS: Amphetamines Screen Urine Positive (Negative); Barbiturates Screen Urine Negative (Negative); Benzodiazepines Screen Urine Negative (Negative); Cocaine Screen Urine Negative (Negative); Opiate Screen Urine Positive (Negative); PCP Screen Urine Negative (Negative); THC Screen Urine Positive (Negative)
== END 2024-07-11 20:51 | disposition short-term general hospital (02) ==
PROVIDERS: Emergency Provider Emergency Medicine
DX: S34.102A Unspecified injury to L2 level of lumbar spinal cord, initial encounter (principal); S22.31XA Fracture of one rib, right side, initial encounter for closed fracture; M48.52XA Collapsed vertebra, not elsewhere classified, cervical region, initial encounter for fracture; S32.82XA Multiple fractures of pelvis without disruption of pelvic ring, initial encounter for closed fracture; Z87.891 Personal history of nicotine dependence
CPT/HCPCS: 36415; 71046; 71275; 72100; 72146; 72148; 74177; 80053; 80306; 80307; 81001; 82550; 83735; 83880; 84484; 84703; 85025; 93005; 96372; 96374; 96375; 96376; 99285; J1885; J2270; J3010; J9999

== ENCOUNTER 2024-08-14 10:08 | Oncology outpatient (recurring) (ONCR) | payer SELFPAY ==
[2024-08-14 10:00] VITALS: PULSE 76; RESP 18; O2SAT 99
[2024-08-14 10:29] LABS: Basophils # 0.1 10^3/uL (0.0-0.1); Basophils % 0.7 %; Eosinophils # 0.5 10^3/uL (0.0-0.8); Hematocrit 23.4 % (36-47); Lymphocytes # 2.6 10^3/uL (0.8-4.8); Lymphocytes % 14.9 %; Mean Corpuscular HGB Conc 31.6 g/dL (30-55); Mean Corpuscular Hemoglobin 27.8 pg (27-33); Mean Platelet Volume 8.1 fL (7.4-10.4); Monocytes # 1.2 10^3/uL (0.2-0.9); Monocytes % 6.6 %; Neutrophils # 12.34 10^3/uL (1.8-7.7); Neutrophils % 70.1 %; Nucleated Red Blood Cells % 0.1 %; Platelet Count 452 10^3/cmm (157-399); Red Blood Count 2.66 10^6/uL (3.85-5.65); Red Cell Distribution Width 14.9 % (12.1-15.1); White Blood Count 17.61 10^3/uL (3.29-11.43)
[2024-08-14 10:59] LABS: Alanine Aminotransferase < 5 U/L (0-33); Albumin Level 3.1 g/dL (3.5-5.2); Alkaline Phosphatase 211 U/L (35-105); Anion Gap 18.9 (5-19); Aspartate Amino Transferase 19 U/L (0-32); Blood Urea Nitrogen 29 mg/dL (6-20); C Reactive Protein 176.5 mg/L (0.0-4.9); Calcium 12.5 mg/dL (8.5-10.5); Carbon Dioxide 22 mmol/L (22-29); Chloride 102 mmol/L (98-107); Globulin 5.9 g/dL (1.3-4.6); Glomerular Filtration Rate 36.5 mL/min (90-130); Glucose 91 mg/dL (65-115); Osmolality Calculated 291 mOsm/kg (285-295); Potassium 4.9 mmol/L (3.5-5.1); Sodium 138 mmol/L (136-145); Total Bilirubin 0.3 mg/dL (0.15-1.2)
[2024-08-14 11:09] LABS: Erythrocyte Sedimentation Rate 15 mm/hr (0-15)
== END 2024-08-17 23:59 | disposition home or self-care (01) ==
PROVIDERS: Internal Medicine Infectious Disease; Visit Provider Internal Medicine
DX: A41.9 Sepsis, unspecified organism (principal); Z53.9 Procedure and treatment not carried out, unspecified reason
CPT/HCPCS: 36415; 80053; 85025; 85651; 86140

== ENCOUNTER 2024-09-17 10:17 | Oncology outpatient (recurring) (ONCR) | payer SELFPAY ==
[2024-09-10 10:17] LABS: Hematocrit 28.0 % (36-47); Hemoglobin 8.60 g/dL (11.27-16.99); Mean Corpuscular HGB Conc 30.7 g/dL (30-55); Mean Corpuscular Hemoglobin 28.2 pg (27-33); Mean Corpuscular Volume 91.8 fl (85-98); Nucleated Red Blood Cells % 0 %; Platelet Count 467 10^3/cmm (157-399); Red Blood Count 3.05 10^6/uL (3.85-5.65); White Blood Count 12.56 10^3/uL (3.29-11.43)
[2024-09-10 10:32] LABS: Alanine Aminotransferase < 5 U/L (0-33); Albumin Level 3.7 g/dL (3.5-5.2); Alkaline Phosphatase 168 U/L (35-105); Anion Gap 18.5 (5-19); Aspartate Amino Transferase 14 U/L (0-32); Blood Urea Nitrogen 16 mg/dL (6-20); Calcium 9.4 mg/dL (8.5-10.5); Carbon Dioxide 24 mmol/L (22-29); Chloride 102 mmol/L (98-107); Globulin 4.2 g/dL (1.3-4.6); Glucose 68 mg/dL (65-115); Osmolality Calculated 291 mOsm/kg (285-295); Potassium 3.5 mmol/L (3.5-5.1); Sodium 141 mmol/L (136-145); Total Protein 7.9 g/dL (6.6-8.7)
[2024-09-10 10:51] LABS: Slide Review Slide Review Perform
[2024-09-10 11:00] VITALS: BP 118/76; PULSE 82; RESP 16; TEMP 36.5; O2SAT 96
[2024-09-17 10:47] VITALS: BP 136/84; PULSE 86; RESP 16; TEMP 36.8; O2SAT 96
[2024-09-17 10:57] LABS: Hematocrit 30.3 % (36-47); Hemoglobin 9.60 g/dL (11.27-16.99); Mean Corpuscular HGB Conc 31.7 g/dL (30-55); Mean Corpuscular Hemoglobin 28.3 pg (27-33); Mean Corpuscular Volume 89.4 fl (85-98); Nucleated Red Blood Cells % 0 %; Platelet Count 393 10^3/cmm (157-399); Red Blood Count 3.39 10^6/uL (3.85-5.65); White Blood Count 15.66 10^3/uL (3.29-11.43)
[2024-09-17 11:22] LABS: Alanine Aminotransferase 19 U/L (0-33); Albumin Level 4.1 g/dL (3.5-5.2); Alkaline Phosphatase 169 U/L (35-105); Anion Gap 17.8 (5-19); Aspartate Amino Transferase 28 U/L (0-32); Blood Urea Nitrogen 21 mg/dL (6-20); Calcium 9.5 mg/dL (8.5-10.5); Carbon Dioxide 22 mmol/L (22-29); Chloride 104 mmol/L (98-107); Globulin 3.9 g/dL (1.3-4.6); Glucose 108 mg/dL (65-115); Osmolality Calculated 294 mOsm/kg (285-295); Potassium 3.8 mmol/L (3.5-5.1); Sodium 140 mmol/L (136-145); Total Protein 8.0 g/dL (6.6-8.7)
== END 2024-09-17 23:59 | disposition home or self-care (01) ==
PROVIDERS: Visit Provider Internal Medicine
DX: R78.81 Bacteremia; Z53.9 Procedure and treatment not carried out, unspecified reason
CPT/HCPCS: 36415; 36592; 80053; 85025; 85651; 86140

== ENCOUNTER 2024-10-09 09:49 | Outpatient (CLI) | payer MEDICAID, SELFPAY ==
--- NOTE | 2024-10-09 09:57 | XRR_ITS ---
PROCEDURE INFORMATION: Exam: XR Lumbosacral Spine Exam date and time: 10/09/2024 10:08 AM Age: 34 years old Clinical indication: Low back pain; Prior surgery; Surgery date: <1 month; Surgery type: Lumbar laminectomy; --pt states infection in blood/bones since 1.5 weeks ago, ; additional info: S/P lumbar laminectomy TECHNIQUE: Imaging protocol: Radiologic exam of the lumbosacral spine. Views: 2 or 3 views. COMPARISON: MR lumbar spine wo con* [id number] 07/11/2024 4:55 PM FINDINGS: Bones/joints: Postop changes of fixation of both SI joints by large screws is present. No evidence for loosening or fracture of the hardware. Postop changes of laminectomies at L2 is present. Soft tissues: Unremarkable. XR/XR lumbar spine 2-3V* [id number] IMPRESSION: Status post bilateral SI joint fixation. Laminectomy at L2.
== END 2024-10-09 09:50 | disposition home or self-care (01) ==
PROVIDERS: Visit Provider Orthopaedic Surgery Orthopaedic Surgery of the Spine
DX: M54.50 Low back pain, unspecified (principal); Z98.1 Arthrodesis status
CPT/HCPCS: 72100

== ENCOUNTER 2024-10-15 08:37 | Oncology outpatient (recurring) (ONCR) | payer BC, MEDICAID, SELFPAY ==
[2024-09-22 14:43] LABS: Hematocrit 30.0 % (36-47); Hemoglobin 9.20 g/dL (11.27-16.99); Mean Corpuscular HGB Conc 30.7 g/dL (30-55); Mean Corpuscular Hemoglobin 28.2 pg (27-33); Mean Corpuscular Volume 92.0 fl (85-98); Nucleated Red Blood Cells % 0 %; Platelet Count 320 10^3/cmm (157-399); Red Blood Count 3.26 10^6/uL (3.85-5.65); White Blood Count 12.94 10^3/uL (3.29-11.43)
[2024-09-22 15:08] LABS: Alanine Aminotransferase 8 U/L (0-33); Albumin Level 3.8 g/dL (3.5-5.2); Alkaline Phosphatase 176 U/L (35-105); Anion Gap 17.4 (5-19); Aspartate Amino Transferase 21 U/L (0-32); Blood Urea Nitrogen 18 mg/dL (6-20); Calcium 9.0 mg/dL (8.5-10.5); Carbon Dioxide 22 mmol/L (22-29); Chloride 110 mmol/L (98-107); Globulin 3.3 g/dL (1.3-4.6); Glucose 94 mg/dL (65-115); Osmolality Calculated 304 mOsm/kg (285-295); Potassium 3.4 mmol/L (3.5-5.1); Sodium 146 mmol/L (136-145); Total Protein 7.1 g/dL (6.6-8.7)
[2024-10-01 11:07] LABS: Hematocrit 31.8 % (36-47); Hemoglobin 10.30 g/dL (11.27-16.99); Mean Corpuscular HGB Conc 32.4 g/dL (30-55); Mean Corpuscular Hemoglobin 29.4 pg (27-33); Mean Corpuscular Volume 90.9 fl (85-98); Nucleated Red Blood Cells % 0 %; Platelet Count 314 10^3/cmm (157-399); Red Blood Count 3.50 10^6/uL (3.85-5.65); White Blood Count 13.78 10^3/uL (3.29-11.43)
[2024-10-01 11:37] LABS: Alanine Aminotransferase 59 U/L (0-33); Albumin Level 4.0 g/dL (3.5-5.2); Alkaline Phosphatase 209 U/L (35-105); Anion Gap 15.7 (5-19); Aspartate Amino Transferase 80 U/L (0-32); Blood Urea Nitrogen 16 mg/dL (6-20); Calcium 9.5 mg/dL (8.5-10.5); Carbon Dioxide 26 mmol/L (22-29); Chloride 103 mmol/L (98-107); Free T4 Free Thyroxine 1.85 ng/dL (0.82-1.77); Globulin 3.2 g/dL (1.3-4.6); Glucose 106 mg/dL (65-115); Osmolality Calculated 294 mOsm/kg (285-295); Potassium 3.7 mmol/L (3.5-5.1); Sodium 141 mmol/L (136-145); Thyroid Stimulating Hormone 0.15 uIU/mL (0.27-4.20); Total Protein 7.2 g/dL (6.6-8.7)
[2024-10-08 09:23] LABS: Hematocrit 38.3 % (36-47); Hemoglobin 12.00 g/dL (11.27-16.99); Mean Corpuscular HGB Conc 31.3 g/dL (30-55); Mean Corpuscular Hemoglobin 29.1 pg (27-33); Mean Corpuscular Volume 92.7 fl (85-98); Nucleated Red Blood Cells % 0 %; Platelet Count 390 10^3/cmm (157-399); Red Blood Count 4.13 10^6/uL (3.85-5.65); White Blood Count 12.70 10^3/uL (3.29-11.43)
[2024-10-08 09:48] LABS: Alanine Aminotransferase 12 U/L (0-33); Albumin Level 4.3 g/dL (3.5-5.2); Alkaline Phosphatase 236 U/L (35-105); Anion Gap 18.1 (5-19); Aspartate Amino Transferase 18 U/L (0-32); Blood Urea Nitrogen 28 mg/dL (6-20); Calcium 9.2 mg/dL (8.5-10.5); Carbon Dioxide 26 mmol/L (22-29); Chloride 103 mmol/L (98-107); Globulin 3.1 g/dL (1.3-4.6); Glucose 78 mg/dL (65-115); Osmolality Calculated 300 mOsm/kg (285-295); Potassium 4.1 mmol/L (3.5-5.1); Sodium 143 mmol/L (136-145); Total Protein 7.4 g/dL (6.6-8.7)
[2024-10-08 10:21] LABS: Slide Review Slide Review Perform
[2024-10-15 09:36] LABS: Hematocrit 31.7 % (36-47); Hemoglobin 10.10 g/dL (11.27-16.99); Mean Corpuscular HGB Conc 31.9 g/dL (30-55); Mean Corpuscular Hemoglobin 29.4 pg (27-33); Mean Corpuscular Volume 92.4 fl (85-98); Nucleated Red Blood Cells % 0 %; Platelet Count 298 10^3/cmm (157-399); Red Blood Count 3.43 10^6/uL (3.85-5.65); White Blood Count 6.62 10^3/uL (3.29-11.43)
[2024-10-15 09:53] LABS: Alanine Aminotransferase 11 U/L (0-33); Albumin Level 3.7 g/dL (3.5-5.2); Alkaline Phosphatase 196 U/L (35-105); Anion Gap 15.8 (5-19); Aspartate Amino Transferase 24 U/L (0-32); Blood Urea Nitrogen 12 mg/dL (6-20); Calcium 9.0 mg/dL (8.5-10.5); Carbon Dioxide 24 mmol/L (22-29); Chloride 106 mmol/L (98-107); Globulin 2.9 g/dL (1.3-4.6); Glucose 84 mg/dL (65-115); Osmolality Calculated 293 mOsm/kg (285-295); Potassium 3.8 mmol/L (3.5-5.1); Sodium 142 mmol/L (136-145); Total Protein 6.6 g/dL (6.6-8.7)
[2024-10-15 10:21] LABS: Slide Review Slide Review Perform
== END 2024-10-18 23:59 | disposition home or self-care (01) ==
PROVIDERS: Visit Provider Orthopaedic Surgery Orthopaedic Surgery of the Spine
DX: R78.81 Bacteremia; Z53.9 Procedure and treatment not carried out, unspecified reason
CPT/HCPCS: 36592; 80053; 84439; 84443; 85025; 85651; 86140

== ENCOUNTER 2024-10-26 16:23 | Outpatient (CLI) | payer BC, MEDICAID, SELFPAY ==
--- NOTE | 2024-10-26 16:42 | MR_ITS ---
WS: [id number] MRI LUMBAR SPINE WITH AND WITHOUT CONTRAST HISTORY: spinal abscess COMPARISON: 07/11/2024 TECHNIQUE: Sagittal and axial multisequence imaging is submitted. Sagittal and axial T1 fat sat sequences post-MultiHance 20 cc IV. This examination is significantly compromised by motion artifact. Since the prior examination patient's undergone a prior sacral fusion. There are a long horizontal screws extending through the SI joints. There is artifact at the L5-S1 level. Additional large postoperative changes of laminectomy defects noted. Postoperative fluid collection with peripheral enhancement centered in the L4-5 laminectomy defect. This fluid collection extends into the epidural space and through the RIGHT laminectomy defect. Collection measures 2.1 x 3.6 cm and is suspicious for abscess in the laminectomy site with extension to the epidural space. There is an additional persistent epidural fluid collection with enhancement beginning at the mid L2 level and extending inferiorly by 7 mm. This is best seen on the postcontrast exam and the sagittal STIR sequence. L5 and S1 vertebral bodies are poorly visualized. Obscuration of the L5-S1 disc. Conus terminates normally at L1-2 disc level. No high-grade central stenosis. Limited evaluation of the foramina due to the motion artifact. MR/MR lumbar spine wo/w con [id number] IMPRESSION: 1. Since the prior MRI lumbar spine of 07/11/2024 patient is undergone sacral f usion and large multilevel lumbar spine laminectomies. 2. Fluid collection with peripheral enhancement centered in the RIGHT laminect kurt defect at L4-5 with extension into the epidural space. With history of epid ural abscess this is likely an abscess. Postoperative seroma may appear similar . 3. Continued epidural space heterogeneous fluid collection extends over a isreal th of 7 cm beginning at L2-L5. Significant decrease in size with less compressi on upon the thecal sac as compared to 07/11/2024. 4. Study is significantly compromised by breathing and movement artifact.
--- NOTE | 2024-10-26 16:42 | MR_ITS ---
WS: [id number] MRI CERVICAL SPINE with and without contrast HISTORY: spinal abcess COMPARISON: None available. Technique: Multiplanar, multisequence noncontrast imaging of the cervical spine. Sagittal and axial T1 fat sat sequences post-MultiHance 20 cc IV. Straightening of the normal cervical lordosis with slight reversal. Prior compression deformity at C7. Mild anterior wedging of T1 and T2. No marrow edema. No marrow edema within the articular facets. There is no cord compression. Normal signal within the cord and at the craniocervical junction. Signal within the cervical cord is normal. Visualized posterior fossa is unremarkable. Craniocervical junction, C1 and C2 relationship, odontoid process and soft tissues are normal. C2-C3: Normal. C3-C4: Limited by motion. Small foraminal osteophytes. C4-C5: Limited by motion. Questionable RIGHT foraminal stenosis and small disc protrusion. C5-C6: Osteophytic ridging and disc bulging and facet arthritis. Mild central and foraminal stenosis. Larger disc osteophyte complex in the LEFT foramen. C6-C7: Osteophytic ridging with facet disease. Mild central and bilateral foraminal stenosis. Limited by motion. C7-T1: Normal. This study is significantly limited by motion. There is no evidence for discitis or osteomyelitis. No prevertebral edema. No discitis or osteomyelitis identified taking into consideration the limitations. MR/MR cervical spine wo/w [id number] IMPRESSION: 1. Study is significantly compromised by motion artifact. 2. No evidence for discitis or osteomyelitis. No epidural abscess identified. 3. Disc osteophyte disease most significant at C5-6 and C6-7. Largest disc ost eophyte LEFT foramen of C5-6. 4. Prior mild anterior compression fractures at C7, T1 and T2.
--- NOTE | 2024-10-26 16:43 | MR_ITS ---
WS: [id number] MRI THORACIC SPINE with and without contrast HISTORY: Spinal abcess COMPARISON: 07/11/2024 TECHNIQUE: Multiplanar sequences are performed in sagittal and axial planes. Sagittal and axial T1 fat sat sequences post-MultiHance 20 cc IV. Slight increase in thoracic kyphosis. Mild anterior wedging of T1, T2, T6. No fractures or marrow edema. Conus tapers normally and ends at L1. No cord atrophy or enlargement. T1-2: Mild facet arthritis. T2-3: Bilateral mild facet arthritis and RIGHT foraminal narrowing. T3-4: Mild bilateral facet arthritis. T4-5: Bilateral facet arthritis and mild foraminal stenosis. T5-6: Limited by motion. T6-7: Limited by motion. T7-8: Limited by motion. T8-9: Limited by motion. T9-10: Facet arthritis. No significant stenosis. T10-11: Mild facet arthritis. T11-12: Normal. No discitis or osteomyelitis identified. No epidural abscess is identified but this study is significantly compromised by motion artifact. There is a small LEFT pleural effusion. MR/MR thoracic spine wo/w [id number] IMPRESSION: 1. Study is significantly compromised by breathing motion artifact. Greatest m otion artifact on the postcontrast imaging. 2. There is no obvious evidence for discitis or osteomyelitis. No epidural abs cess identified. 3. Small LEFT pleural effusion.
[2024-10-26] MEDS: gadobenate dimeglumine 20 mL vial IV (18:45)
== END 2024-10-26 16:24 | disposition home or self-care (01) ==
LOC: RAD 16:24
PROVIDERS: PCP Electrodiagnostic Medicine
DX: G06.1 Intraspinal abscess and granuloma (principal); M47.814 Spondylosis without myelopathy or radiculopathy, thoracic region; M46.96 Unspecified inflammatory spondylopathy, lumbar region; J90 Pleural effusion, not elsewhere classified; Z98.890 Other specified postprocedural states; Z96.89 Presence of other specified functional implants; R06.89 Other abnormalities of breathing; Z87.81 Personal history of (healed) traumatic fracture; M25.78 Osteophyte, vertebrae; M48.02 Spinal stenosis, cervical region; M47.812 Spondylosis without myelopathy or radiculopathy, cervical region; M50.322 Other cervical disc degeneration at C5-C6 level; M50.323 Other cervical disc degeneration at C6-C7 level; S12.691D Other nondisplaced fracture of seventh cervical vertebra, subsequent encounter for fracture with routine healing; S22.010D Wedge compression fracture of first thoracic vertebra, subsequent encounter for fracture with routine healing; S22.020D Wedge compression fracture of second thoracic vertebra, subsequent encounter for fracture with routine healing; X58.XXXD Exposure to other specified factors, subsequent encounter
CPT/HCPCS: 72156; 72157; 72158

== ENCOUNTER 2024-10-29 11:24 | Inpatient (IN) | payer BC, MEDICAID, SELFPAY ==
--- OUTSIDE RECORDS SUMMARY | 2023-07-29 04:00 | XMS_ITS ---
Author Organization [facility] Address [address] [place] [address] Care Team Providers Care Merchandise Planning Manager Name Role Phone Hansel Diaz Primary Care Provider HANSEL DIAZ Unavailable Unavailable REASON FOR VISIT 1 month f/u Medications Medication SIG (Take, Route, Frequency, Duration) Notes Start Date End Date Status buPROPion HCl ER (XL) 300 MG Tablet Extended Release 24 Hour TAKE 1 TABLET BY MOUTH ONCE DAILY IN THE MORNING; Duration: 30 Active Estelle Fe 1.5/30 1.5-30 MG-MCG Tablet TAKE 1 TABLET BY MOUTH ONCE DAILY FOR 28 DAYS; Duration: 28 Active Lisinopril 10 MG Tablet 1 tablet Orally twice a day; Duration: 30 days Active Norgestim-Eth Estrad Triphasic 0.18/0.215/0.25 MG-25 MCG Tablet 1 tablet Orally Once a day; Duration: 28 day(s) 02/21/2023 Active Topiramate 50 MG Tablet 1 tablet Orally Twice a day; Duration: 30 days Active Venlafaxine HCl ER 75 MG Capsule Extended Release 24 Hour 1 tablet with food Oral Once a day; Duration: 30 days Active Encounters Encounter Location Date Provider Diagnosis [facility] Office [address] [address] 07/29/2023 [facility] Plan Of Treatment No Information Progress Notes * Stefani MONZONOB:1990 (34 yo F)Acc No.[id number]:07/29/2023 Progress Notes Patient: Mariella Clark Provider: Amadeo Diaz LADLE CLEANER :1990 A ge:33 Y S ex:Female Date:07/29/2023 Address:[address] [place] [address], [facility] [id number] Subjective: * Chief Complaints: * 1 month f/u * Medications: T akingLarin Fe 1.5/30 1.5-30 MG-MCG Tablet TAKE 1 TABLET BY MOUTH ONCE DAILY FOR 28 DAYS buPROPion HCl ER (XL) 300 MG Tablet Extended Release 24 Hour TAKE 1 TABLET BY MOUTH ONCE DAILY IN THE MORNING Topiramate 50 MG Tablet 1 tablet Orally Twice a day Norgestim-Eth Estrad Triphasic 0.18/0.215/0.25 MG-25 MCG Tablet 1 tablet Orally Once a day Lisinopril 10 MG Tablet 1 tablet Orally twice a day Venlafaxine HCl ER 75 MG Capsule Extended Release 24 Hour 1 tablet with food Oral Once a day Taking Estelle Fe 1.5/30 1.5-30 MG-MCG Tablet TAKE 1 TABLET BY MOUTH ONCE DAILY FOR 28 DAYS Taking buPROPion HCl ER (XL) 300 MG Tablet Extended Release 24 Hour TAKE 1 TABLET BY MOUTH ONCE DAILY IN THE MORNING Taking Topiramate 50 MG Tablet 1 tablet Orally Twice a day Taking Norgestim-Eth Estrad Triphasic 0.18/0.215/0.25 MG-25 MCG Tablet 1 tablet Orally Once a day Taking Lisinopril 10 MG Tablet 1 tablet Orally twice a day Taking Venlafaxine HCl ER 75 MG Capsule Extended Release 24 Hour 1 tablet with food Oral Once a day Care Plan Details* * Electronic signature of Kyung Diaz APN on 10/29/2024 at 11:18 AM CDT Sign off status: Pending * Provider: Amadeo Diaz LADLE CLEANER Date: 07/29/2023 Generated for Atul garcia/Nancie/Winnie on: 10/29/2024 11:18 AM CDT
[2024-10-29] VITALS (11 sets, daily range): BP systolic 109–126; BP diastolic 60–88; PULSE 101–115; RESP 15–26; TEMP 36.7–37.1; O2SAT 96–100; BMI 32.9
--- NOTE | 2024-10-29 11:27 | ECG_ITS ---
[employer] Test Date: 2024-10-29 Pat Name: Mariella Tinajero Department: Room: Gender: Female [employer]: : 1990 Requested By: Pb Patiño Order Number: [id number] Reading MD: MARITZA LOOMIS Measurements Intervals [place] Rate: 114 P: 128 OK: 152 QRS: 110 QRSD: 98 T: 178 QT: 334 QTc: 460 Interpretive Statements SINUS TACHYCARDIA ARM LEADS REVERSED [INVERTED P AND QRS IN I] ABNORMAL RHYTHM ECG Compared to ECG 07/11/2024 12:40:58 Atrial abnormality no longer present T-wave abnormality no longer present Electronically Signed On 10-30-2024 20:13:31 CDT by MARITZA LOOMIS [id number] [id number]
--- NOTE | 2024-10-29 11:27 | XRR_ITS ---
PROCEDURE INFORMATION: Exam: XR Chest Exam date and time: 10/29/2024 11:51 AM Age: 34 years old Clinical indication: Cough and dyspnea; Additional info: Dyspnea/cough TECHNIQUE: Imaging protocol: Radiologic exam of the chest. Views: 1 view. COMPARISON: CR XR chest 2V* [id number] 08/11/2024 1:09 PM FINDINGS: Tubes, catheters and devices: Right-sided PICC line tip appears to be in the right subclavian vein. Lungs: Pulmonary vessels are within normal limits. Left basilar scarring. Right lung is clear. Pleural spaces: No pneumothorax. Heart/Mediastinum: Cardiomediastinal silhouette is within normal limits. Bones/joints: Unremarkable. XR/XR chest 1V portable [id number] IMPRESSION: 1. No acute pulmonary finding. 2. Right-sided PICC line tip appears to be in the right subclavian vein.
--- NOTE | 2024-10-29 11:28 | ED_ITS ---
HPI - General Adult 2 General: Chief complaint: Extremity Problem,Nontraumatic Stated complaint: SOB Swollen legs/Feet Time Seen by Provider: 10/29/24 11:27 History of Present Illness: 34-year-old female presents to the [facility] ency room complaining of severe lower extremity edema. She states she has gained 30 pounds in the last couple of weeks. She has increasing shortness of breath when lying down or with any exertion she denies any chest pain. She has also noticed rapid heart rate. Patient previously had been at [facility] they found an infection along her spinal column from her description it sounds as if it disseminated. She describes having had septicemia and valvular heart injury from this. She was later transferred to [place]. She currently has a PICC line and has been receiving IV antibiotics through home infusion of the PICC line. She states she was told that this infection was due to staph. She is not currently on any anticoagulation. Associated symptoms: Reports dyspnea; Deny chest pain or rash Related Data Home Medications ?Medication ?Instructions ?Recorded ?Confirmed cholecalciferol (vitamin D3) 50 50 mcg PO DAILY 10/29/24 mcg (2,000 unit) capsule cyclobenzaprine 10 mg tablet 10 mg PO TID PRN Muscle p ain or 10/29/24 10/29/24 Spasm duloxetine 60 mg capsule,delayed 60 mg PO DAILY 10/29/24 release furosemide 20 mg tablet 40 mg PO DAILY 10/29/2410/19 gabapentin 600 mg tablet 600 mg PO TID 10/29/2410/29 hydrocodone 10 mg-acetaminophen 1 tab PO .Q4-6HQ4H PRN Pain 10/29/24 10/29/24 325 mg tablet levothyroxine 137 mcg tablet 137 mcg PO QAM 10/29/24 0 10/29/24 nifedipine 60 mg tablet,extended 60 mg PO BID 10/29/24 10/29/24 release ondansetron HCl 4 mg tablet 4 mg PO Q8H PRN Nausea And Vomiting 10/29/24 10/29/24 potassium chloride 20 mEq 20 meq PO DAILY 10/29/2401/12 tablet,extended release(part/cryst) (Klor-Con M) Allergies Allergy/AdvReac Type Severity Reaction Status Date / Time No Known Allergies Allergy Verified 02/28/23 09:17 Review of Systems 2 Const: Denies: fever(s) or chills Card: Reports: edema, swelling of feet/ankles, dyspnea on exertion and orthopnea; Denies: chest pain Resp: Reports: dyspnea GI: Denies: abdominal pain : Denies: dysuria, urinary frequency or urinary urgency Musc: Denies: neck pain or back pain Skin/Breast: Denies: rash PFSH ED 2 PFSH: Medical History Amphetamine substance use disorder, moderate, in sustained remission Generalized anxiety disorder Major depressive disorder, recurrent severe without psychotic features Social History Smoking and tobacco/nicotine status: former use of tobacco/nicotine Alcohol intake: current Alcohol intake frequency: holidays/special occasions only Physical Exam 2 Const: GENERAL APPEARANCE: cooperative ORIENTATION/CONSCIOUSNESS: Yes awake, Yes oriented to person, Yes oriented to place and Yes oriented to time HENMT: COMMON NORMALS: normocephalic, atraumatic and hearing grossly normal bilaterally HEAD & SCALP: normocephalic and atraumatic Resp: COMMON NORMALS: normal respiratory effort, No retractions, No use of accessory muscles and clear to auscultation bilaterally AUSCULTATION: clear to auscultation bilaterally Cardio: COMMON NORMALS: regular rate, regular rhythm and No murmurs present (Cardio) RATE: regular rate RHYTHM: regular rhythm GI: COMMON NORMALS: Soft to palpation and No hepatosplenomegaly present A USCULTATION: Yes normoactive bowel sounds PALPATION: Yes Soft to palpation, No Tenderness to palpation present (GI), No Guarding due to palpation present (GI) and Yes No hepatosplenomegaly present Extremity: COMMON NORMALS: normal to inspection, capillary refill normal, no clubbing, cyanosis or edema, no calf tenderness and no pedal edema Neuro: SENSORIUM/ORIENTATION: Yes oriented to person, Yes oriented to place and Yes oriented to time Skin: COMMON NORMALS: no rashes or lesions noted GENERAL SKIN EXAM: no rashes or lesions noted Course 2 Vital Signs: Vital signs: Vital Signs Temperature 98.6 F 10/29/24 20:00 Pulse Rate 101 H 10/30/24 05:40 Respiratory Rate 15 10/30/24 04:00 Blood Pressure 135/85 10/30/24 04:00 Pulse Oximetry 96 10/30/24 03:37 Oxygen Delivery Me thod Room Air 10/30/24 03:37 MDM - General Adult Medical Decision Making Patient has had extensive history. She had what sounds like an epidural abscess and septicemia. She described some valvular injury due to this. We are seeking records from [facility]. She is tachycardic and significantly fluid overloaded. Mild fluid overloaded on her lungs. CTA of her chest was unremarkable echocardiogram. Did not show any regional wall motion abnormality, normal left ventricular ejection fraction. Discussed with hospitalist will admit for fluid overload. Will need diuresis and continue IV antibiotics. Review of old records when available. Noted on the chest x-ray PICC line seems to have retracted some but is still in a position that is functional. Ultrasound venous duplex lower extremities does not show any lower extremity DVT. Discussed with Dr. 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 Reviewed all this Dr. Dempsey will admit Medical Records I reviewed the patient's medical records. Lab Data I reviewed the patient's lab results. 10/30/24 04:54 10/30/24 04:54 Radiology Impressions Chest X-Ray 10/29/24 11:27 IMPRESSION: 1. No acute pulmonary finding. 2. Right-sided PICC line tip appears to be in the right subclavian vein. Chest CTA 10/29/24 13:37 IMPRESSION: 1. No evidence of pulmonary embolus. 2. Tiny LEFT pleural effusion. Subsegmental Tamara LEFT lower lobe. 3. Slight hazy groundglass attenuation in the perihilar regions and lower lobes bilaterally may be due to edema. Shallow inspiration. 4. Normal caliber thoracic aorta. 5. 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 6. Small esophageal hiatal hernia. Notified Pb Duran DO at 10/29/2024 3:06 PM. Abdomen Ultrasound 10/29/24 16:48 IMPRESSION: Normal sonographic appearance of the spleen. Some peripheral capsular margins of the superior aspect of the spleen were obscured. Laboratory Results WBC 7.18 10^3/uL (3.29-11.43) 10/29/24 11:45 RBC 3.36 10^6/uL (3.85-5.65) L 10/29/24 11:45 Hgb 9.90 g/dL (11.27-16.99) L 10/29/24 11:45 Hct 30.0 % (36-47) L 10/29/24 11:45 MCV 89.3 fl (85-98) 10/29/24 11:45 MCH 29.5 pg (27-33) 10/29/24 11:45 MCHC 33.0 g/dL (30-55) 10/29/24 11:45 RDW 13.5 % (12.1-15.1) 10/29/24 11:45 Plt Count 465 10^3/cmm (157-399) H 10/29/24 11:45 MPV 8.3 fL (7.4-10.4) 10/29/24 11:45 Neut % (Auto) 52.1 % 10/29/24 11:45 Lymph % (Auto) 33.0 % 10/29/24 11:45 [place] % (Auto) 9.9 % 10/29/24 11:45 Eos % (Auto) 3.5 % 10/29/24 11:45 Baso % (Auto) 0.7 % 10/29/24 11:45 Neut # (Auto) 3.74 10^3/uL (1.8-7.7) 10/29/24 11:45 Lymph # (Auto) 2.4 10^3/uL (0.8-4.8) 10/29/24 11:45 [place] # (Auto) 0.7 10^3/uL (0.2-0.9) 10/29/24 11:45 Eos # (Auto) 0.3 10^3/uL (0.0-0.8) 10/29/24 11:45 Baso # (Auto) 0.1 10^3/uL (0.0-0.1) 10/29/24 11:45 Nucleated RBC % (auto) 0 % 10/29/24 11:45 Nucleated RBCs # 0.0 /100WBC 10/29/24 11:45 Sodium 142 mmol/L (136-145) 10/29/24 11:45 Potassium 3.6 mmol/L (3.5-5.1) 10/29/24 11:45 Chloride 103 mmol/L (98-107) 10/29/24 11:45 Carbon Dioxide 25 mmol/L (22-29) 10/29/24 11:45 Anion Gap 17.6 (5-19) 10/29/24 11:45 BUN 11 mg/dL (6-20) 10/29/24 11:45 Creatinine 0.9 mg/dL (0.5-0.9) 10/29/24 11:45 GFR Calculation 70.8 mL/min (90-130) L 10/29/24 11:45 Glucose 110 mg/dL (65-115) 10/29/24 11:45 Calculated Osmolality 294 mOsm/kg (285-295) 10/29/24 11:45 Lactic Acid 2.0 mmol/L (0.5-2.2) 10/29/24 11:45 Calcium 9.7 mg/dL (8.5-10.5) 10/29/24 11:45 Total Bilirubin 0.3 mg/dL (0.15-1.2) 10/29/24 11:45 AST 19 U/L (0-32) 10/29/24 11:45 ALT < 5 U/L (0-33) 10/29/24 11:45 Alkaline Phosphatase 177 U/L (35-105) H 10/29/24 11:45 C-Reactive Protein 30.5 mg/L (0.0-4.9) H 10/29/24 11:45 NT-Pro-B Natriuret Pep 368 pg/mL (0-125) H 10/29/24 11:45 NT-Pro-B Natriuret Pep Cancelled 10/29/24 11:45 Total Protein 6.6 g/dL (6.6-8.7) 10/29/24 11:45 Albumin 3.8 g/dL (3.5-5.2) 10/29/24 11:45 Globulin 2.8 g/dL (1.3-4.6) 10/29/24 11:45 Procalcitonin 0.12 ng/mL (0-0.5) 10/29/24 11:45 Urine Color Yellow (Yellow) 10/29/24 11:45 Urine Appearance Cloudy (CLEAR) A 10/29/24 11:45 Urine pH 5.5 (5-7) 10/29/24 11:45 Ur Specific [place] 1.011 (1.005-1.030) 10/29/24 11:45 Urine Protein Negative (Negative) 10/29/24 11:45 Urine Glucose (UA) Negative (Normal) 10/29/24 11:45 Urine Ketones Negative (Negative) 10/29/24 11:45 Urine Blood Negative (Negative) 10/29/24 11:45 Urine Nitrate Negative (Negative) 10/29/24 11:45 Urine Bilirubin Negative (Negative) 10/29/24 11:45 Urine Urobilinogen 0.2 mg/dL (Negative) 10/29/24 11:45 Ur Leukocyte Esterase 1+ (Negative) A 10/29/24 11:45 Urine RBC 0-2 /hpf (0-2) 10/29/24 11:45 Urine WBC 6-10 /hpf (0-5) 10/29/24 11:45 Ur Squamous Epith Cells 11-20 /hpf (0-5) H 10/29/24 11:45 Amorphous Sediment Not Reportable 10/29/24 11:45 Urine Bacteria None seen /hpf (NONE) 10/29/24 11:45 Hyaline Casts 7.42 /lpf 10/29/24 11:45 All radiology interpretation(s) finalized by discharge EKG Data EKG 1: Interpretation: EKG 10/29/2024 1141 sinus tachycardia. Rate of [address]Tc [address] No acute [address] elevation present. Compared EKG 07/11/2024 Computer generated interpretation: Chest X-Ray 10/29/24 11:27 IMPRESSION: 1. No acute pulmonary finding. 2. Right-sided PICC line tip appears to be in the right subclavian vein. Chest CTA 10/29/24 13:37 IMPRESSION: 1. No evidence of pulmonary embolus. 2. Tiny LEFT pleural effusion. Subsegmental Tamara LEFT lower lobe. 3. Slight hazy groundglass attenuation in the perihilar regions and lower lobes bilaterally may be due to edema. Shallow inspiration. 4. Normal caliber thoracic aorta. 5. 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 6. Small esophageal hiatal hernia. Notified Pb Duran DO at 10/29/2024 3:06 PM. Abdomen Ultrasound 10/29/24 16:48 IMPRESSION: Normal sonographic appearance of the spleen. Some peripheral capsular margins of the superior aspect of the spleen were obscured. EKG 2: Computer generated interpretation: Chest X-Ray 10/29/24 11:27 IMPRESSION: 1. No acute pulmonary finding. 2. Right-sided PICC line tip appears to be in the right subclavian vein. Chest CTA 10/29/24 13:37 IMPRESSION: 1. No evidence of pulmonary embolus. 2. Tiny LEFT pleural effusion. Subsegmental Tamara LEFT lower lobe. 3. Slight hazy groundglass attenuation in the perihilar regions and lower lobes bilaterally may be due to edema. Shallow inspiration. 4. Normal caliber thoracic aorta. 5. 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 6. Small esophageal hiatal hernia. Notified Pb Duran DO at 10/29/2024 3:06 PM. Abdomen Ultrasound 10/29/24 16:48 IMPRESSION: Normal sonographic appearance of the spleen. Some peripheral capsular margins of the superior aspect of the spleen were obscured. Discharge Plan Discharge Patient Disposition: Admitted As Inpatient Admit Provider: Ronaldo Dempsey Clinical Impression: Bilateral edema of lower extremity, History of staphylococcal septicemia Condition: Stable Coding Level of Care Code ED Occupational Therapy Asst for Andre Cortez
--- OUTSIDE RECORDS SUMMARY | 2024-10-29 11:45 | XMS_ITS | Patient Health Record ---
Author Organization [facility] Address [address] [place] [address] Care Team Providers Care Toe Former Name Role Phone Joe [facility] Primary Care Provider [facility] Unavailable Unavailable Allergies No Known Allergies Reason For Referral No Information Medications Medication SIG (Take, Route, Frequency, Duration) Notes Start Date End Date Status Estelle Fe 1.5/30 1.5-30 MG-MCG Tablet TAKE 1 TABLET BY MOUTH ONCE DAILY FOR 28 DAYS; Duration: 28 Active Venlafaxine HCl ER 75 MG Capsule Extended Release 24 Hour 1 tablet with food Oral Once a day; Duration: 30 days Active Lisinopril 10 MG Tablet 1 tablet Orally twice a day; Duration: 30 days Active Norgestim-Eth Estrad Triphasic 0.18/0.215/0.25 MG-25 MCG Tablet 1 tablet Orally Once a day; Duration: 28 day(s) 02/21/2023 Active Topiramate 50 MG Tablet 1 tablet Orally Twice a day; Duration: 30 days Active buPROPion HCl ER (XL) 300 MG Tablet Extended Release 24 Hour TAKE 1 TABLET BY MOUTH ONCE DAILY IN THE MORNING; Duration: 30 days Active Social History Tobacco Use: Social History Observation Description Date Details (start date - stop date) Current Smoker NA - NA Social History Depression Screening Social Info Question Answer Notes depression screening findings Findings Negative (0 -4) PHQ-9 Little interest or p devorah in doing things Not at all Feeling down, depressed, or hopeless Not at all Trouble falling or staying asleep, or sleeping t oo much Not at all Feeling tired or having little energy Not at all Poor appetite or overeating Not at all Feeling bad about yourself, or that you are a failure, or have let yourself or your family down Not at all Trouble concentrating on thi ngs, such as reading the newspaper or watching television Not at all Moving or speaking so slowly that other people could have noticed. Or the opposite ? being so fidgety or restless that you have been moving around a lot more than usual Not at all Thoughts that you would be b haja off , or of hurting yourself in some way Not at all Total Score 0 Drugs/Alcohol: Social Info Question Answer Notes Alcohol Screen (Audit-C) Did you have a drink containing alcohol in the past year? No Points 0 Interpretation Negative Drugs Have you used drugs other than those for medical reasons in the past 12 months? No Tobacco Use: Social Info Question Answer Notes xTobacco Use/Smoking Are you a current smoker How often do you smoke cigarettes? some days, but not every day How many cigarettes a day do you smoke? 5 or less How soon after you wake up do you smoke your first cigarette? after 60 minutes Are you interested in quitting? Ready to quit Additional Details Category Social Info Options Details Drugs/Alcohol: Do you smoke marijuana? De nies Do you drink alcohol? No Section Notes: 05/19/21 05/19/21 05/19/21 05/19/21 05/19/21 05/19/21 05/19/21 05/19/21 05/19/21 05/19/21 05/19/21 PHQ-9 5 on 04/05/2022 Depression screen completed 04/24/2022 score 0 Depression screen completed 04/24/2022 score 0 Depression screen completed 04/24/2022 score 0 Depression screen completed 04/24/2022 score 0 Depression screen completed 04/24/2022 score 0 Depression screen completed 04/24/2022 score 0 Depression screen completed 04/24/2022 score 0 Depression screen completed 04/24/2022 score 0 Depression screen completed 04/24/2022 score 0 Depression screen completed 04/24/2022 score 0 Depression screen completed 04/24/2022 score 0 Depression screen completed 06/07/2023 score 0 Depression screen completed 04/24/2022 score 0 Depression screen completed 04/24/2022 score 0 Depression screen completed 04/24/2022 score 0 Depression screen completed 06/07/2023 score 0 Problems Problem Type SNOMED Code ICD Code Onset Dates Problem Status W/U Status Risk Notes Problem Morbid obesity (disorder) (175367387) Morbid (severe) obesity due to excess calories (E66.01) Active confirmed Problem Tobacco user (134104472) Nicotine dependence, cigarettes, uncomplicated (F17.210) Active confirmed Problem Tension-type headache (851520479) Tension-type headache, unspecified, not intractable (G44.209) Active confirmed Problem Amenorrhea (90892929) Amenorrhea (N91.2) Active confirmed Problem Obesity (554588191) Obesity (BMI 30-39.9) (E66.9) Active confirmed Problem Hypoglycemia (345115918) Hypoglycemia (E16.2) Active confirmed Problem Thyroid disorder screening (681873462) Thyroid disorder screening (Z13.29) Active confirmed Problem Obesity (972699908) Obesity (E66.9) Active confirmed Problem Depression (057319258) Other depression (F32.89) Active confirmed Problem Lipid screening (517745182) Lipid screening (Z13.220) Active confirmed Problem Hyperlipidemia (16185518) Hyperlipidemia (E78.5) Active confirmed Problem Body mass index 30.00 to 34.99 (510644622752186) Body mass index [BMI] 31.0-31.9, adult (Z68.31) Active confirmed Problem Body mass index 30.00 to 34.99 (528576755462407) Body mass index [BMI] 32.0-32.9, adult (Z68.32) Active confirmed Problem Body mass index 30.00 to 34.99 (669358338447322) Body mass index [BMI] 33.0-33.9, adult (Z68.33) Active confirmed Problem Dietary management surveillance (848728707) Encounter for dietary counseling and surveillance (Z71.3) Active confirmed Problem Primary hypertension (88901914) Primary hypertension (I10) Active confirmed Problem Body mass index 30+ - obesity (331078365) Body mass index [BMI] 30.0-30.9, adult (Z68.30) Active confirmed Plan Of Treatment No Information Medical (General) History Medical History History ICD Code anemia anxiety High Blood Pressure irritable bowel syndrome depression Surgical History Surgery Date(Month/Year) section 05/28/15 section 02/03/18 Hospitalization History Reason Date(Month/Year) section
[2024-10-29 12:01] LABS: Hematocrit 30.0 % (36-47); Hemoglobin 9.90 g/dL (11.27-16.99); Mean Corpuscular HGB Conc 33.0 g/dL (30-55); Mean Corpuscular Hemoglobin 29.5 pg (27-33); Mean Corpuscular Volume 89.3 fl (85-98); Nucleated Red Blood Cells % 0 %; Platelet Count 465 10^3/cmm (157-399); Red Blood Count 3.36 10^6/uL (3.85-5.65); White Blood Count 7.18 10^3/uL (3.29-11.43)
--- NOTE | 2024-10-29 12:07 | PC.NURSE ---
pt expresses concern for PICC line location d/t start with 7cm external catheter length and it being currently 11cm external length; line currently flushes and draws blood w/o difficulty
[2024-10-29 12:18] LABS: Slide Review Slide Review Perform
--- NOTE | 2024-10-29 12:19 | PC.NURSE ---
1150 Blood Culture collected via PICC line
[2024-10-29 12:20] LABS: Glucose Urine UA Negative (Normal); Lactic Sepsis W/Reflex 2.0 mmol/L (0.5-2.2); Nitrate Urine Negative (Negative); Specific Gravity, Urine 1.011 (1.005-1.030)
[2024-10-29 12:23] LABS: Add Urine Microscopic? YES
[2024-10-29 12:33] LABS: Alanine Aminotransferase < 5 U/L (0-33); Albumin Level 3.8 g/dL (3.5-5.2); Alkaline Phosphatase 177 U/L (35-105); Anion Gap 17.6 (5-19); Aspartate Amino Transferase 19 U/L (0-32); Blood Urea Nitrogen 11 mg/dL (6-20); Calcium 9.7 mg/dL (8.5-10.5); Carbon Dioxide 25 mmol/L (22-29); Chloride 103 mmol/L (98-107); Creatinine Clr Calc Pharmacy 109.3819; Globulin 2.8 g/dL (1.3-4.6); Glucose 110 mg/dL (65-115); NT Pro B Type Natriuretic Pept 368 pg/mL (0-125); Osmolality Calculated 294 mOsm/kg (285-295); Potassium 3.6 mmol/L (3.5-5.1); Sodium 142 mmol/L (136-145); Total Protein 6.6 g/dL (6.6-8.7)
[2024-10-29 12:35] LABS: UA Slide Review UA Slide Review Perf
--- NOTE | 2024-10-29 12:35 | USCV_ITS ---
Mariella Tinajero Age: 34 Gender: F : 1990 Exam Date: 10/29/2024 13:01 Ordering Phys: Pb Duran DO Technologist: Exam Location: [facility] [place] Indication: valve infection BP: 109 / 65 HR: Rhythm: Sinus Technical Quality: Adequate MEASUREMENTS (Male / Female) Normal Values 2D ECHO LV Diastolic Diameter PLAX 4.5 cm 4.2 - 5.9 / 3.9 - 5.3 cm IVS Diastolic Thickness 1.2 cm 0.6 - 1.0 / 0.6 - 0.9 cm IVS Systolic Thickness 1.4 cm LVPW Diastolic Thickness 1.4 cm 0.6 - 1.0 / 0.6 - 0.9 cm LVPW Systolic Thickness 1.9 cm LVOT Diameter 2.2 cm LV Ejection Fraction 2D Teich 64.3 % LV Ejection Fraction MOD 4C 67.0 % LV Ejection Fraction MOD 2C 67.6 % LV Ejection Fraction 2C AL 66.9 % LA Diameter 3.3 cm RA Systolic Volume 4C AL 40.2 ml RA Systolic Volume 4C MOD 40.2 ml Aorta at Sinotubular Diameter 2.8 cm M-MODE LA Ao Ratio MM 1.4 AV Cusp Separation MM 3.1 cm FINDINGS Left Ventricle Normal left ventricular size, systolic function and wall thickness, with no regional wall motion abnormalities. Left ventricular ejection fraction is estimated at 60 %. Right Ventricle Right Atrium Left Atrium Mitral Valve Aortic Valve Tricuspid Valve Pulmonic Valve Pericardium Aorta IVC CONCLUSIONS Limited Rcho Normal left ventricular size, systolic function and wall thickness, with no regional wall motion abnormalities. Left ventricular ejection fraction is estimated at 60 %. There is no pericardial effusion. Right atrial pressure is around 5 mm of mercury. Can Aguilar MD (Electronically Signed) Final Date: 29 October 2024 20:07 S
--- NOTE | 2024-10-29 13:37 | CT_ITS ---
WS: [id number] CTA OF THE CHEST WITH PULMONARY EMBOLISM PROTOCOL TECHNIQUE: High-resolution contrast enhanced CTA of the chest with coronal and sagittal reformatted images with pulmonary embolism protocol. MIP images are also reviewed. CLINICAL INFORMATION: tachycardia/dyspnea COMPARISON: None. DLP: 428.[address] scans at [facility] use at least one of these dose optimization techniques: automated exposure control; mA and/or kV adjustment per patient size (includes targeted exams where dose is matched to clinical indication); or iterative reconstruction. FINDINGS: Proximal main pulmonary arteries are normal. Normal segmental and subsegmental pulmonary arteries. No evidence of pulmonary embolus. Tiny LEFT pleural effusion. Subsegmental atelectasis LEFT lower lobe. Slight hazy groundglass attenuation in the perihilar regions and lower lobes bilaterally may be due to edema. Normal caliber thoracic aorta. Normal caliber descending thoracic aorta. Celiac and SMA are patent in the upper abdomen. Adrenal glands are normal. Small esophageal hiatal hernia. Fatty atrophy of the pancreas. Wedge-shaped area of low-attenuation involving the spleen likely splenic. Suspicious for a splenic infarct. This is new since 07/11/2024 CT/CT angio chest PE protcl [id number] IMPRESSION: 1. No evidence of pulmonary embolus. 2. Tiny LEFT pleural effusion. Subsegmental Tamara LEFT lower lobe. 3. Slight hazy groundglass attenuation in the perihilar regions and lower lobe s bilaterally may be due to edema. Shallow inspiration. 4. Normal caliber thoracic aorta. 5. 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 6. Small esophageal hiatal hernia. Notified Pb Duran DO at 10/29/2024 3:06 PM.
[2024-10-29] MEDS: iohexol 350 mg/mL 500 mL Btl (per mL) IV (14:10)
--- NOTE | 2024-10-29 15:21 | USCV_ITS ---
Mariella Tinajero Age: 34 Gender: F : 1990 Exam Date: 10/29/2024 15:41 Ordering Phys: Pb Duran DO Technologist: [place] [facility] [place]: LE Swelling HISTORY: Lower extremity edema. PROCEDURES: Venous duplex imaging was performed in bilateral lower extremities. The following venous structures were evaluated: common femoral vein, profunda vein, proximal portion of the greater saphenous vein, superficial femoral vein, and the popliteal vein. In addition, the posterior tibial and peroneal trunk were evaluated. Serial compression, augmentation maneuvers, and spectral Doppler flow evaluation were performed. FINDINGS: No evidence of DVT seen in any vessel visualized at this time. CONCLUSIONS No evidence of right lower extremity DVT. No evidence of left lower extremity DVT. Binu Verde MD (Electronically Signed) Final Date: 29 October 2024 16:05 S
--- NOTE | 2024-10-29 16:48 | USR_ITS ---
PROCEDURE INFORMATION: Exam: US Abdomen; Limited Exam date and time: 10/29/2024 5:59 PM Age: 34 years old Clinical indication: Screening exam; Other: Assess for splenic abscess TECHNIQUE: Imaging protocol: Real time ultrasound of the abdomen with image documentation. Limited exam focused on the region of clinical interest. COMPARISON: CT angio chest PE protcl [id number] 10/29/2024 2:06 PM FINDINGS: Spleen: Sonographic imaging is limited to the spleen. The spleen measures 11.5 cm. Portions of the superior margin of the spleen were obscured due to the subdiaphragmatic location. Spleen density is normal. No evidence for spleen mass. Normal-appearing hilar vascularity to the spleen. No perisplenic fluid collections. US/US abdomen limited [id number] IMPRESSION: Normal sonographic appearance of the spleen. Some peripheral capsular margins of the superior aspect of the spleen were obscured.
--- NOTE | 2024-10-29 16:55 | PM.HP ---
Providers/Chief Complaint Admitting Physician: Ronaldo Dempsey MD Primary Care Provider: Corbin Schulz DO Chief Complaint: SOB Swollen legs/Feet History of Present Illness Mariella Tinajero is a 34 year old female with a past medical history of an epidural abscess status post surgical debridement, multiple abdominal abscesses with drains?, Prolonged hospitalization at [facility], then [facility], who presents [facility] due to weakness, fatigue, lower extremity edema, shortness of breath. Currently patient is very emotional, at times it is difficult to get history from her as she does not remember exactly what happened at her hospitalization at [facility] or [facility], as she was hospitalized for over a month, she is emotional about being hospitalized at [facility], as she was hospitalized for such a prolonged period at tertiary level centers, and she felt she would never get out. The history that I was able to piece together from her is is that she was transferred from [facility] to [facility] back in June for concerns for an epidural abscess, she tells me that she had surgery at [facility], she was put on IV antibiotics, she was eventually discharged home, and she followed up with infectious diseases outpatient however her condition worsen, and then she was transferred from [facility] at some point to [facility], she tells me that at [facility] she had multiple abdominal drains placed for abscesses?, She had bouts of renal failure, other multiorgan failure but was never in septic shock or in the ICU or required a ventilator. But eventually was discharged, on IV cefazolin 2 g IV every 8 hours, and her drains were slowly removed, the last one was removed about a week ago in clinic when she was up at [facility] about a week ago. She also tells me that there was an issue in regards to one of the valves of her heart?, She is not exactly sure if it was a vegetation or an abscess but her family members says that it might have been a hole in the valve of her heart? But she is supposed to have some sort of valve surgery once her infection clears up, however she is subsequently developed increased shortness of breath, bilateral extremity edema, swelling, fatigue, malaise, no chest pain, ER provider has requested records from [facility], patient tells me that for her lower extremity edema her primary care provider has put her on Lasix which is seeming to help but the fluid continues to accumulate, she is developing abdominal wall edema, abdominal distention, her primary care provider has increased her dose of Lasix Review of Systems Card: Denies: chest pain Resp: Reports: dyspnea Medications/Allergies Home Medications ?Medication ?Instructions ?Recorded ?Confirmed ?Last Taken ?Type cholecalciferol (vitamin D3) 50 50 mcg PO DAILY 10/29/24 10/29/24 10/29/24 History mcg (2,000 unit) capsule cyclobenzaprine 10 mg tablet 10 mg PO TID PRN Muscle pain or 10/29/24 10/29/24 Unknown History Spasm duloxetine 60 mg capsule,delayed 60 mg PO DAILY 10/29/24 10/29/24 10/29/24 History release furosemide 20 mg tablet 40 mg PO DAILY 10/29/24 10/29/24 10/29/24 History gabapentin 600 mg tablet 600 mg PO TID 10/29/24 10/29/24 10/29/24 History hydrocodone 10 mg-acetaminophen 1 tab PO .Q4-6HQ4H PRN Pain 10/29/24 10/29/24 Unknown History 325 mg tablet levothyroxine 137 mcg tablet 137 mcg PO QAM 10/29/24 10/29/24 10/29/24 History nifedipine 60 mg tablet,extended 60 mg PO BID 10/29/24 10/29/24 10/29/24 History release ondansetron HCl 4 mg tablet 4 mg PO Q8H PRN Nausea And Vomiting 10/29/24 10/29/24 Unknown History potassium chloride 20 mEq 20 meq PO DAILY 10/29/24 10/29/24 10/29/24 History tablet,extended release(part/cryst) (Klor-Con M) Allergies Allergy/AdvReac Type Severity Reaction Status Date / Time No Known Allergies Allergy Verified 02/28/23 09:17 PFSH Acute PFSH: Medical History Amphetamine substance use disorder, moderate, in sustained remission Generalized anxiety disorder Major depressive disorder, recurrent severe without psychotic features Social History Smoking and tobacco/nicotine status: former use of tobacco/nicotine Alcohol intake: current Alcohol intake frequency: holidays/special occasions only Vitals/I&O/Wt Last Vital Signs Temp 98.0 F 10/29/24 11:55 Pulse 102 H 10/29/24 16:28 Resp 18 10/29/24 16:15 BP 119/88 10/29/24 16:28 Pulse Ox 98 10/29/24 16:28 O2 Del Method Room Air 10/29/24 12:54 Weight last 48 hrs Weight 101.151 kg Physical Exam Const: COMMON NORMALS: no acute distress and patient oriented x3 HENMT: COMMON NORMALS: normocephalic HEAD & SCALP: normocephalic Neck/C-Spine: COMMON NORMALS: no JVD Resp: COMMON NORMALS: normal respiratory effort, No retractions, No use of accessory muscles and clear to auscultation bilaterally AUSCULTATION: clear to auscultation bilaterally Cardio: COMMON NORMALS: regular rate, regular rhythm, S1 normal heart sound present and S2 normal heart sound present RATE: regular rate RHYTHM: regular rhythm HEART SOUNDS: S1 normal heart sound present and S2 normal heart sound present GI: COMMON NORMALS: Normal to inspection, nondistended, normoactive bowel sounds present, Soft to palpation and non-tender Extremity: COMMON NORMALS: no calf tenderness NARRATIVE EXTREMITY EXAM: 2+ pitting edema bilateral extremities Neuro: COMMON NORMALS: patient oriented x3, CN's II-XII intact bilaterally and moves all extremities Psych: COMMON NORMALS: mental status grossly normal Data 10/29/24 11:45 10/29/24 11:45 Micro: Microbiology 10/29/24 11:50 Blood Culture - Preliminary Blood SPECIMEN COLLECTED 10/29/24 11:45 Blood Culture - Preliminary Blood SPECIMEN COLLECTED A&P Assessment and plan 1. Bilateral edema of lower extremity: Plan: Bilateral lower extremity edema, fluid overload -Etiology unclear -CT angiogram negative for pulmonary embolism -Venous ultrasound negative for DVT - Patient reports improvement with Lasix - She is on nifedipine Plan - Will do trial of IV Lasix, 40 IV twice daily - Monitor urine output, monitor creatinine - Cardiac echo ordered History of epidural abscess, status post drainage, multiple abdominal abscesses status post drain removal - History of cardiac valve disease? - Currently on IV cefazolin - Will reach out to patient's team at [facility] - She was supposed to have an MRI abdomen pelvis, today at 4 PM, I will order these as inpatient Patient was noted to have multiple pathologic fractures involving her pelvis Of note patient had a peripheral enhancing lesion in the spleen measuring 1.7 x 2.1 cm on thoracic MRI dated 10/26/2024 - This was concerning for a splenic abscess? - Her CT angiogram of the chest today on 10/29/2024 shows wedge-shaped area of low-attenuation involving the spleen, suspicious for splenic infarct - Will send images to galileo Bhakta infectious disease at [facility] - I have ordered an MRI of the abdomen/pelvis - Continue IV cefazolin - Cardiac echo was ordered - Telemetry monitoring Full code Lovenox for DVT prophylaxis PDMP PDMP Reviewed: Not Reviewed Attestations Medical Necessity Statement*: Patient requires hospitalization for bilateral lower extremity edema, epidural abscess splenic abscess? Diagnoses Bilateral edema of lower extremity R60.0
[2024-10-29 17:02] LABS: Procalcitonin 0.12 ng/mL (0-0.5)
[2024-10-29] MEDS: FUROsemide 10 mg/mL SDV 4mL 40 MG IVP (17:44)
[2024-10-29] MEDS: ceFAZolin 2,000 mg SDV 2000 MG IVP (17:44)
[2024-10-29] MEDS: pantoprazole 40 mg SDV IVP (17:45)
[2024-10-29 17:52] LABS: Lactic Sepsis W/Reflex 0.8 mmol/L (0.5-2.2)
[2024-10-29 18:17] LABS: Alcohol Level 15 mg/dL (0-10); Cholesterol 168 mg/dL (0-200); HDL Cholesterol 37 mg/dL (60-100); Thyroid Stimulating Hormone 0.20 uIU/mL (0.27-4.20); Triglycerides 229 mg/dL (0-150)
[2024-10-29 20:10] LABS: Estmated Average Glucose 91; Hemoglobin A1C 4.8 % (4.0-6.0)
[2024-10-29] MEDS: HYDROcodone-acetaminophen 10-325 mg Tablet 1 TAB PO (20:58)
[2024-10-29 22:57] LABS: PCP Screen Urine Negative (Negative)
[2024-10-30] VITALS (8 sets, daily range): BP systolic 115–146; BP diastolic 63–93; PULSE 99–109; RESP 14–18; TEMP 36.4–36.7; O2SAT 94–96
[2024-10-30] MEDS: ceFAZolin 2,000 mg SDV 2000 MG IVP ×2 (01:44→10:44)
[2024-10-30] MEDS: HYDROcodone-acetaminophen 10-325 mg Tablet 1 TAB PO ×2 (03:32→10:45)
[2024-10-30 05:08] LABS: Hematocrit 27.5 % (36-47); Hemoglobin 9.00 g/dL (11.27-16.99); Mean Corpuscular HGB Conc 32.7 g/dL (30-55); Mean Corpuscular Hemoglobin 29.3 pg (27-33); Mean Corpuscular Volume 89.6 fl (85-98); Nucleated Red Blood Cells % 0 %; Platelet Count 393 10^3/cmm (157-399); Red Blood Count 3.07 10^6/uL (3.85-5.65); White Blood Count 5.10 10^3/uL (3.29-11.43)
[2024-10-30 05:20] LABS: Partial Thromboplastin Time 32.3 SECONDS (23.9-36.7)
[2024-10-30 05:26] LABS: Alanine Aminotransferase < 5 U/L (0-33); Albumin Level 3.1 g/dL (3.5-5.2); Alkaline Phosphatase 156 U/L (35-105); Anion Gap 16.3 (5-19); Aspartate Amino Transferase 18 U/L (0-32); Blood Urea Nitrogen 7 mg/dL (6-20); Calcium 9.4 mg/dL (8.5-10.5); Carbon Dioxide 27 mmol/L (22-29); Chloride 104 mmol/L (98-107); Creatinine Clr Calc Pharmacy 140.6339; Globulin 2.7 g/dL (1.3-4.6); Glucose 85 mg/dL (65-115); Osmolality Calculated 295 mOsm/kg (285-295); Potassium 3.3 mmol/L (3.5-5.1); Sodium 144 mmol/L (136-145); Total Protein 5.8 g/dL (6.6-8.7)
[2024-10-30 05:41] LABS: Slide Review Slide Review Perform
[2024-10-30] MEDS: LORazepam 1 MG/0.5 ML injection IVP (09:30)
--- NOTE | 2024-10-30 09:30 | MR_ITS ---
WS: [id number] MRI ABDOMEN WITHOUT CONTRAST. COMPARISON: Prior ultrasound 10/29/2024, CT angiogram chest 10/29/2024. Prior MRI thoracic spine 10/26/2024. Multiplanar, multisequence imaging is performed without contrast. Very small layering LEFT pleural effusion. Spleen is normal size. Very subtle change in signal in the posterior medial spleen measuring 1.5 x 1.8 cm. This corresponds to the abnormality seen on the prior MRI. There is a tiny amount of adjacent fluid. This is very nonspecific on a noncontrast study. The visualized liver is mildly enlarged demonstrating hepatic steatosis. Is visualized kidneys are normal. No ascites or adenopathy. Normal aorta. MR/MR abdomen wo con [id number] IMPRESSION: 1. Subtle signal changes in the posterior medial spleen measuring 1.5 x 1.8 cm . Corresponds to the area of possible infarct or abscess seen on recent prior s tudies. 2. Small LEFT pleural effusion.
--- NOTE | 2024-10-30 09:33 | PC.NURSE ---
to mri via w/c at this time
--- NOTE | 2024-10-30 10:03 | PC.CHAP ---
Pastoral Care Encounter/Spiritual Assessment Type of Contact [] Declined professor of rhetoric visit [] Patient/Family/Request visit [] Outpatient visit [] Follow-up visit [] Physician referral [] Code/Alert [x] Routine visit [] Staff referral [] Actively dying [] Patient sleeping [] Family support [] [] Out of room [] Palliative care [] [] Receiving care in room [] Pre-surgical visit [] Trauma [] Long length of stay [] ICU visit [] Other: Relational/Emotional Strength [x] Patient feels connected with others/family/visitors/staff [x] Distress [] Loneliness/isolation [] Abandonment Spirituality of Patient [x] Person of [place] [] Attends Gnosticism of their [place] [x] Believes in Prayer [] Reads Bible or Temple materials [] There are Spiritual issues to be addressed Restaurant Host Interventions [x] Prayer [x] Active listening [x] Non-anxious presence [x] Spiritual/emotional support [] Crisis/trauma care [] Spiritual counseling [] Bereavement support [] Provided bereavement packet [] Provided Bible/devotional materials [] Provided toy/stuffed animal, coloring book to patient or family member [] Provided Communion [] Anointing/[place] [] Salvation [x] Completed spiritual assessment [] Other: Impact on Illness or Injury [] Angry [] Fearful [] Anxious [] Often cries [] Exhaustion [] Unable to work [] Unable to attend zoroastrianism [] Unable to walk/stand [] Unable to read [] Unable to drive [] Unable to eat/drink [] Unable to sleep [] Unable to be with family [] Patient intubated [] Other: Summary Time spent with patient 5 min
--- NOTE | 2024-10-30 10:15 | MR_ITS ---
WS: [id number] MRI PELVIS WITHOUT CONTRAST. COMPARISON: None Multiplanar, multisequence imaging is performed without contrast. History: Possible pelvic abscess. Study is limited by lack of contrast, motion artifact and hardware artifact in the pelvis. Taking into consideration the limitations of the study there is no fluid collection within the pelvis. Urinary bladder is minimally distended. No adenopathy or ascites appreciated. There is mild soft tissue edema in the pelvis, bilateral and symmetric. There is also edema within the muscles of the pelvis, greater on the RIGHT and involving the gluteus minimus muscle. Lesser edema in the LEFT gluteus minimus muscle. Bilateral femoral head osteonecrosis. MR/MR pelvis wo con* [id number] IMPRESSION: 1. No fluid collection within the pelvis. 2. Anasarca bilaterally in the subcutaneous soft tissues. 3. Intramuscular edema within the gluteus minimus muscles, RIGHT greater than LEFT. Consider myositis. There is no fluid collection associated with the intra muscular edema. 4. Bilateral femoral head osteonecrosis.
[2024-10-30] MEDS: FUROsemide 10 mg/mL SDV 4mL 40 MG IVP (10:45)
--- NOTE | 2024-10-30 10:54 | PC.NURSE ---
return from mri via w/c at 1045.tolerated procedure well
--- NOTE | 2024-10-30 15:05 | P.PN_ITS ---
Subjective 2 Subjective: Patient was seen this morning, currently alert oriented x 3, following all commands, denies any fevers, no chills, no nausea, no vomiting, no abdominal pain, no lightheadedness, no dizziness, does have edema, which is improving with diuresis, she denies any IV drug use, denies any fevers, no chills Vitals/I&O/Wt Last Vital Signs Temp 97.6 F 10/30/24 11:47 Pulse 102 H 10/30/24 11:47 Resp 17 10/30/24 11:47 BP 146/93 10/30/24 11:47 Pulse Ox 96 10/30/24 03:37 O2 Del Method Room Air 10/30/24 03:37 10/30/24 10/30/24 10/30/24 06:59 14:59 22:59 Intake Total 360 / 360 Balance 360 / 360 Weight last 48 hrs Weight 100.062 kg Weight 101.151 kg Physical Exam 2 Const: COMMON NORMALS: no acute distress and patient oriented x3 Resp: COMMON NORMALS: normal respiratory effort, No retractions and No use of accessory muscles AUSCULTATION: crackles and wheezes Cardio: COMMON NORMALS: regular rate, regular rhythm, S1 normal heart sound present and S2 normal heart sound present RATE: regular rate RHYTHM: r egular rhythm HEART SOUNDS: S1 normal heart sound present and S2 normal heart sound present GI: COMMON NORMALS: Normal to inspection, nondistended, normoactive bowel sounds present and non-tender Extremity: NARRATIVE EXTREMITY EXAM: 1 pitting edema Neuro: COMMON NORMALS: patient oriented x3 Psych: COMMON NORMALS: mental status grossly normal Data 10/30/24 04:54 10/30/24 04:54 Micro: Microbiology 10/29/24 11:50 Blood Culture - Preliminary Blood NEGATIVE TO DATE 10/29/24 11:45 Blood Culture - Preliminary Blood NEGATIVE TO DATE A&P Assessment and plan 1. Bilateral edema of lower extremity: Plan: Bilateral lower extremity edema, fluid overload -Etiology unclear -CT angiogram negative for pulmonary embolism -Venous ultrasound negative for DVT - Patient reports improvement with Lasix - She is on nifedipine Plan - Will do trial of IV Lasix, 40 IV twice daily - Monitor urine output, monitor creatinine - Cardiac echo CONCLUSIONS Limited echo Normal left ventricular size, systolic function and wall thickness, with no regional wall motion abnormalities. Left ventricular ejection fraction is estimated at 60 %. There is no pericardial effusion. Right atrial pressure is around 5 mm of mercury. History of epidural abscess, status post drainage, multiple abdominal abscesses status post drain removal - History of cardiac valve disease? - Currently on IV cefazolin - Will reach out to patient's team at [facility] - Pelvic MRI, abdominal MRI ordered Patient was noted to have multiple pathologic fractures involving her pelvis Of note patient had a peripheral enhancing lesion in the spleen measuring 1.7 x 2.1 cm on thoracic MRI dated 10/26/2024 - This was concerning for a splenic abscess? Versus splenic infarct - Her CT angiogram of the chest today on 10/29/2024 shows wedge-shaped area of low-attenuation involving the spleen, suspicious for splenic infarct -Will start full dose anticoagulant therapy - Will send images to [facility], discusse with infectious disease at [place] - I have ordered an MRI of the abdomen/pelvis - Continue IV cefazolin - Cardiac echo was ordered results as above - Telemetry monitoring Full code Lovenox for DVT prophylaxis PDMP PDMP Reviewed: Not Reviewed Attestations 2 Medical Necessity Statement*: Patient requires hospitalization for bilateral extremity edema, concern for splenic infarct versus abscess, will speak to infectious disease Diagnoses Bilateral edema of lower extremity R60.0
--- NOTE | 2024-10-30 16:27 | PC.NURSE ---
pt's came in to visit...came to desk and announced that Mariella is leaving .He stated she can take lasix at home and sleep at home .instructed pt and that iv lasix is not available at home...they both stated that that was okay.dr apple notified.he came and spoke with them.Pt signed AMA form.warehouse examiner and unit manager [employer] notified.
--- NOTE | 2024-10-30 16:50 | PM.CCNAC ---
Critical Care Event Note The high probability of a clinically significant, sudden or life threatening deterioration of the patient's [] system(s) required my full and direct attention, intervention and personal management. The critical care time is as shown. This time is in addition to time spent performing any reported procedures but includes the following: [x] Data and vital sign review and interpretation [x] Patient assessment, examination and intervention [x] Documentation [x] Medication orders and management Critical Care Time Code activated: No Critical Care Time (min): 0 Additional information about critical care time: - Reviewed abdominal MRIs and pelvic MRIs with patient's infectious disease doctor at [facility] MR/MR abdomen wo con [id number] IMPRESSION: 1. Subtle signal changes in the posterior medial spleen measuring 1.5 x 1.8 cm. Corresponds to the area of possible infarct or abscess seen on recent prior studies. 2. Small LEFT pleural effusion. MR/MR pelvis wo con* [id number] IMPRESSION: 1. No fluid collection within the pelvis. 2. Anasarca bilaterally in the subcutaneous soft tissues. 3. Intramuscular edema within the gluteus minimus muscles, RIGHT greater than LEFT. Consider myositis. There is no fluid collection associated with the intramuscular edema. 4. Bilateral femoral head osteonecrosis. -Spoke to infectious disease at [facility] -I do not have the records as of yet -I was told that patient had an epidural abscess status post debridement x 2, with infection spreading to her abdomen, to her right thigh, to her pelvis, requiring multiple drains, frequent IV antibiotics, she had MSSA bacteremia, there was also concern for mitral valve involvement, I was told that she had mitral valve regurgitation -She has a follow-up with [facility], CT surgery consultation for consideration of mitral valve replacement - Discussed findings of posterior medial spleen question of splenic infarct versus abscess -Blood cultures so far negative -She remains afebrile, normotensive, CRP 30.5, Pro-[place] 0.12, sed rate 40 -Discussed case with infectious disease, this was not seen on their prior imaging -Infectious diseases at [facility] recommended continue IV antibiotics, with close outpatient follow-up -As there is a question about patient having a splenic infarct versus abscess, especially with her mitral valve involvement, my concern would be for septic emboli -I was in the process of trying to call [facility] CT surgery and their hospitalist service for their consultation and possible consideration of transfer, however patient and wants to leave AGAINST MEDICAL ADVICE -Especially with patient's urine toxicology screen positive for methamphetamines although patient denies methamphetamine use, I am highly suspicious for possible persistent drug use -Patient's came up to the nursing station and wanted to sign his out -I was able to meet patient and in the [place] -Discussed my concern of leaving as medical advice, discussed morbidity and mortality, they voiced understanding, all questions answered, they want to leave AGAINST MEDICAL ADVICE -Discussed my concerns in the spleen, it is hard to say if she has a splenic abscess versus splenic infarct, but plans on starting anticoagulation tonight monitoring for 24 hours, and getting consultation for CT surgery at [facility] considering possible transfer as I discussed in the morning -However patient wants to leave AGAINST MEDICAL ADVICE -Given that this is a difficult situation she is young she is 34, I am going to put her on Eliquis therapy, discussed risks and benefits, she voiced understanding, all questions answered, agreed to proceed -Will send Eliquis to the pharmacy - Discussed with her to continue her antibiotics -Monitor for bloody or black stools with the Eliquis, discussed risk and benefits, he voiced understanding, agreed to proceed -Please follow-up with infectious disease at [facility] Coding Level of Care Code Acute Code for Andre Fwjovana
--- NOTE | 2024-10-30 17:07 | PM.DCS ---
Discharge Providers Date of Admission: 10/29/24 16:25 Date of Discharge: October 30, 2024 Attending Provider at Admission: Ronaldo Dempsey MD Attending Provider at Discharge: Ronaldo Dempsey MD Primary Care Provider: Corbin Schulz DO Diagnoses at Discharge Discharge Diagnosis 1. Bilateral edema of lower extremity: Reason for Visit Reason for Visit: SOB Swollen legs/Feet Hospital Course Hospital Course Mariella Tinajero is a 34 year old female with a past medical history of an epidural abscess status post surgical debridement, multiple abdominal abscesses with drains?, Prolonged hospitalization at [facility], then [facility], who presents [facility] due to weakness, fatigue, lower extremity edema, shortness of breath. Currently patient is very emotional, at times it is difficult to get history from her as she does not remember exactly what happened at her hospitalization at [facility] or [place], as she was hospitalized for over a month, she is emotional about being hospitalized at [facility], as she was hospitalized for such a prolonged period at tertiary level centers, and she felt she would never get out. The history that I was able to piece together from her is is that she was transferred from [facility] to [facility] back in June for concerns for an epidural abscess, she tells me that she had surgery at [facility], she was put on IV antibiotics, she was eventually discharged home, and she followed up with infectious diseases outpatient however her condition worsen, and then she was transferred from [facility] at some point to [place], she tells me that at [place] she had multiple abdominal drains placed for abscesses?, She had bouts of renal failure, other multiorgan failure but was never in septic shock or in the ICU or required a ventilator. But eventually was discharged, on IV cefazolin 2 g IV every 8 hours, and her drains were slowly removed, the last one was removed about a week ago in clinic when she was up at [place] about a week ago. She also tells me that there was an issue in regards to one of the valves of her heart?, She is not exactly sure if it was a vegetation or an abscess but her family members says that it might have been a hole in the valve of her heart? But she is supposed to have some sort of valve surgery once her infection clears up, however she is subsequently developed increased shortness of breath, bilateral extremity edema, swelling, fatigue, malaise, no chest pain, ER provider has requested records from [place], patient tells me that for her lower extremity edema her primary care provider has put her on Lasix which is seeming to help but the fluid continues to accumulate, she is developing abdominal wall edema, abdominal distention, her primary care provider has increased her dose of Lasix Patient was admitted to [facility] fluid overload receiving IV diuresis There was also concern for splenic abscess versus infarct requiring inpatient workup, abdominal and pelvic MRI, starting full dose anticoagulant therapy, monitoring in the hospital - Patient was seen this morning, - I had a detailed discussion with her about her MRI thoracic finding of a splenic abscess versus infarct, discussed CT imaging of the chest findings - Discussed that he will have to reach out to her team at [place], discussed the possibility of transfer however she is very adamant about not being transferred, as she has been in and out of [place] for a prolonged period of time - I ordered her pelvic and abdominal MRIs - I had a detailed discussion with her about the risk and benefits of anticoagulant therapy, if there is a concern for splenic infarct, it is hard to say the synopsis of recent infarct, we will see what the abdominal MRI shows, but I would recommend anticoagulant therapy and switch her to therapeutic Lovenox - Would recommend continued inpatient monitoring - Her edema is improving we will continue IV Lasix - She also had voiced to the nurse yesterday afternoon that she had suicidal thoughts - She denies any suicidal thoughts, denies any homicidal thoughts, denies any actions - But does report feeling down and depressed, especially with her multitude of hospitalizations at [facility] and [place] in the hospitalized for over a month is taken a significant toll on her - We discussed her positive blood alcohol levels, I do advise to have avoid any alcohol - Her urine was also positive for methamphetamines, she adamantly denies any IV drug use - I would recommend for treatment avoid any drugs, especially with her recent history, discussed morbidity and mortality - I discussed with her to spend another night in the hospital for close monitoring, she is very hesitant, she does not like being in the hospital due to her prior experience - Her edema is 1+ Reviewed abdominal MRIs and pelvic MRIs with patient's infectious disease doctor at [place] MR/MR abdomen wo con [id number] IMPRESSION: 1. Subtle signal changes in the posterior medial spleen measuring 1.5 x 1.8 cm. Corresponds to the area of possible infarct or abscess seen on recent prior studies. 2. Small LEFT pleural effusion. MR/MR pelvis wo con* [id number] IMPRESSION: 1. No fluid collection within the pelvis. 2. Anasarca bilaterally in the subcutaneous soft tissues. 3. Intramuscular edema within the gluteus minimus muscles, RIGHT greater than LEFT. Consider myositis. There is no fluid collection associated with the intramuscular edema. 4. Bilateral femoral head osteonecrosis. -Spoke to infectious disease at [facility] -I do not have the records as of yet -I was told that patient had an epidural abscess status post debridement x 2, with infection spreading to her abdomen, to her right thigh, to her pelvis, requiring multiple drains, frequent IV antibiotics, she had MSSA bacteremia, there was also concern for mitral valve involvement, I was told that she had mitral valve regurgitation -She has a follow-up with [facility], CT surgery consultation for consideration of mitral valve replacement - Discussed findings of posterior medial spleen question of splenic infarct versus abscess -Blood cultures so far negative -She remains afebrile, normotensive, CRP 30.5, Pro-Wayne 0.12, sed rate 40 -Discussed case with infectious disease, this was not seen on their prior imaging -Infectious diseases at [facility] recommended continue IV antibiotics, with close outpatient follow-up -As there is a question about patient having a splenic infarct versus abscess, especially with her mitral valve involvement, my concern would be for septic emboli -I was in the process of trying to call [facility] CT surgery and their hospitalist service for their consultation and possible consideration of transfer, however patient and wants to leave AGAINST MEDICAL ADVICE -Especially with patient's urine toxicology screen positive for methamphetamines although patient denies methamphetamine use, I am highly suspicious for possible persistent drug use -Patient's came up to the nursing station and wanted to sign his out -I was able to meet patient and in the [facility] -Discussed my concern of leaving as medical advice, discussed morbidity and mortality, they voiced understanding, all questions answered, they want to leave AGAINST MEDICAL ADVICE -Discussed my concerns in the spleen, it is hard to say if she has a splenic abscess versus splenic infarct, but plans on starting anticoagulation tonight monitoring for 24 hours, and getting consultation for CT surgery at [place] considering possible transfer as I discussed in the morning -However patient wants to leave AGAINST MEDICAL ADVICE -Given that this is a difficult situation she is young she is 34, I am going to put her on Eliquis therapy, discussed risks and benefits, she voiced understanding, all questions answered, agreed to proceed -Will send Eliquis to the pharmacy - Discussed with her to continue her antibiotics -Monitor for bloody or black stools with the Eliquis, discussed risk and benefits, he voiced understanding, agreed to proceed -Please follow-up with infectious disease at [place] Physical Exam Const: COMMON NORMALS: no acute distress and patient oriented x3 Extremity: COMMON NORMALS: no pedal edema Neuro: COMMON NORMALS: patient oriented x3 Psych: COMMON NORMALS: mental status grossly normal Discharge Data Studies Completed and Pending Completed Studies During Hospitalization Category Date Time Status CT angio chest PE protcl [id number] Stat Cat Scan 10/29/24 13:37 Completed XR chest 1V portable [id number] Stat Exams 10/29/24 11:27 Completed MR abdomen wo con [id number] Stat MRI 10/30/24 09:30 Completed MR pelvis wo con* [id number] Stat MRI 10/30/24 10:15 Completed US abdomen limited [id number] Stat Ultrasound 10/29/24 16:48 Completed US echo limited [CV. echo limited [id number]] Stat Ultrasound 10/29/24 12:35 Completed US venous duplex lower extremity bilat [CV venous Ultrasound 10/29/24 15:21 [place] [id number]] Stat Pending at discharge Category Date Time Status Blood Culture Stat Lab 10/29/24 11:50 Results HCG Qualitative Urine. Stat Lab 10/30/24 16:33 Ordered Radiology Impressions Chest X-Ray 10/29/24 11:27 IMPRESSION: 1. No acute pulmonary finding. 2. Right-sided PICC line tip appears to be in the right subclavian vein. Chest CTA 10/29/24 13:37 IMPRESSION: 1. No evidence of pulmonary embolus. 2. Tiny LEFT pleural effusion. Subsegmental Tamara LEFT lower lobe. 3. Slight hazy groundglass attenuation in the perihilar regions and lower lobes bilaterally may be due to edema. Shallow inspiration. 4. Normal caliber thoracic aorta. 5. 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 6. Small esophageal hiatal hernia. Notified Pb Duran DO at 10/29/2024 3:06 PM. Abdomen Ultrasound 10/29/24 16:48 IMPRESSION: Normal sonographic appearance of the spleen. Some peripheral capsular margins of the superior aspect of the spleen were obscured. Abdomen MRI 10/30/24 09:30 IMPRESSION: 1. Subtle signal changes in the posterior medial spleen measuring 1.5 x 1.8 cm. Corresponds to the area of possible infarct or abscess seen on recent prior studies. 2. Small LEFT pleural effusion. Pelvis MRI 10/30/24 10:15 IMPRESSION: 1. No fluid collection within the pelvis. 2. Anasarca bilaterally in the subcutaneous soft tissues. 3. Intramuscular edema within the gluteus minimus muscles, RIGHT greater than LEFT. Consider myositis. There is no fluid collection associated with the intramuscular edema. 4. Bilateral femoral head osteonecrosis. Laboratory Results WBC 5.10 10^3/uL (3.29-11.43) 10/30/24 04:54 RBC 3.07 10^6/uL (3.85-5.65) L 10/30/24 04:54 Hgb 9.00 g/dL (11.27-16.99) L 10/30/24 04:54 Hct 27.5 % (36-47) L 10/30/24 04:54 MCV 89.6 fl (85-98) 10/30/24 04:54 MCH 29.3 pg (27-33) 10/30/24 04:54 MCHC 32.7 g/dL (30-55) 10/30/24 04:54 RDW 13.5 % (12.1-15.1) 10/30/24 04:54 Plt Count 393 10^3/cmm (157-399) 10/30/24 04:54 MPV 8.2 fL (7.4-10.4) 10/30/24 04:54 Neut % (Auto) 43.4 % 10/30/24 04:54 Lymph % (Auto) 38.2 % 10/30/24 04:54 Sabine % (Auto) 12.5 % 10/30/24 04:54 Eos % (Auto) 3.7 % 10/30/24 04:54 Baso % (Auto) 1.2 % 10/30/24 04:54 Neut # (Auto) 2.21 10^3/uL (1.8-7.7) 10/30/24 04:54 Lymph # (Auto) 2.0 10^3/uL (0.8-4.8) 10/30/24 04:54 Sabine # (Auto) 0.6 10^3/uL (0.2-0.9) 10/30/24 04:54 Eos # (Auto) 0.2 10^3/uL (0.0-0.8) 10/30/24 04:54 Baso # (Auto) 0.1 10^3/uL (0.0-0.1) 10/30/24 04:54 Nucleated RBC % (auto) 0 % 10/30/24 04:54 Nucleated RBCs # 0.0 /100WBC 10/30/24 04:54 APTT 32.3 SECONDS (23.9-36.7) 10/30/24 04:54 Sodium 144 mmol/L (136-145) 10/30/24 04:54 Potassium 3.3 mmol/L (3.5-5.1) L 10/30/24 04:54 Chloride 104 mmol/L (98-107) 10/30/24 04:54 Carbon Dioxide 27 mmol/L (22-29) 10/30/24 04:54 Anion Gap 16.3 (5-19) 10/30/24 04:54 BUN 7 mg/dL (6-20) 10/30/24 04:54 Creatinine 0.7 mg/dL (0.5-0.9) 10/30/24 04:54 GFR Calculation 94.7 mL/min (90-130) 10/30/24 04:54 Glucose 85 mg/dL (65-115) 10/30/24 04:54 Estimat Average Glucose 91 10/29/24 17:23 Hemoglobin A1c 4.8 % (4.0-6.0) 10/29/24 17:23 Calculated Osmolality 295 mOsm/kg (285-295) 10/30/24 04:54 Lactic Acid 0.8 mmol/L (0.5-2.2) 10/29/24 17:23 Calcium 9.4 mg/dL (8.5-10.5) 10/30/24 04:54 Total Bilirubin 0.2 mg/dL (0.15-1.2) 10/30/24 04:54 AST 18 U/L (0-32) 10/30/24 04:54 ALT < 5 U/L (0-33) 10/30/24 04:54 Alkaline Phosphatase 156 U/L (35-105) H 10/30/24 04:54 C-Reactive Protein 30.5 mg/L (0.0-4.9) H 10/29/24 11:45 NT-Pro-B Natriuret Pep 368 pg/mL (0-125) H 10/29/24 11:45 NT-Pro-B Natriuret Pep Cancelled 10/29/24 11:45 Total Protein 5.8 g/dL (6.6-8.7) L 10/30/24 04:54 Albumin 3.1 g/dL (3.5-5.2) L 10/30/24 04:54 Globulin 2.7 g/dL (1.3-4.6) 10/30/24 04:54 Triglycerides 229 mg/dL (0-150) H 10/29/24 17:23 Cholesterol 168 mg/dL (0-200) 10/29/24 17:23 LDL Cholesterol, Calc 85 mg/dL (50-129) 10/29/24 17:23 HDL Cholesterol 37 mg/dL (60-100) L 10/29/24 17:23 LDL/HDL Ratio 2.30 RATIO (0.00-3.22) 10/29/24 17:23 Cholesterol/HDL Ratio 4.54 mg/dL (0.0-4.40) H 10/29/24 17:23 Procalcitonin 0.12 ng/mL (0-0.5) 10/29/24 11:45 TSH 0.20 uIU/mL (0.27-4.20) L 10/29/24 17:23 Ser , Semi-Qnt < 1.00 mIU/mL 10/30/24 04:54 Urine Color Yellow (Yellow) 10/29/24 11:45 Urine Appearance Cloudy (CLEAR) A 10/29/24 11:45 Urine pH 5.5 (5-7) 10/29/24 11:45 Ur Specific [place] 1.011 (1.005-1.030) 10/29/24 11:45 Urine Protein Negative (Negative) 10/29/24 11:45 Urine Glucose (UA) Negative (Normal) 10/29/24 11:45 Urine Ketones Negative (Negative) 10/29/24 11:45 Urine Blood Negative (Negative) 10/29/24 11:45 Urine Nitrate Negative (Negative) 10/29/24 11:45 Urine Bilirubin Negative (Negative) 10/29/24 11:45 Urine Urobilinogen 0.2 mg/dL (Negative) 10/29/24 11:45 Ur Leukocyte Esterase 1+ (Negative) A 10/29/24 11:45 Urine RBC 0-2 /hpf (0-2) 10/29/24 11:45 Urine WBC 6-10 /hpf (0-5) 10/29/24 11:45 Ur Squamous Epith Cells 11-20 /hpf (0-5) H 10/29/24 11:45 Amorphous Sediment Not Reportable 10/29/24 11:45 Urine Bacteria None seen /hpf (NONE) 10/29/24 11:45 Hyaline Casts 7.42 /lpf 10/29/24 11:45 Urine Opiates Screen Positive ng/mL (Negative) H 10/29/24 21:57 Ur Barbiturates Screen Negative ng/mL (Negative) 10/29/24 21:57 Ur Phencyclidine Scrn Negative ng/mL (Negative) 10/29/24 21:57 Ur Amphetamines Screen Positive ng/mL (Negative) H 10/29/24 21:57 U Benzodiazepines Scrn Negative ng/mL (Negative) 10/29/24 21:57 Urine Cocaine Screen Negative ng/mL (Negative) 10/29/24 21:57 U Marijuana (THC) Screen Negative ng/mL (Negative) 10/29/24 21:57 Ethyl Alcohol 15 mg/dL (0-10) H 10/29/24 17:23 Vitals Last Vital Signs Temp 97.7 F 10/30/24 16:00 Pulse 100 10/30/24 16:46 Resp 17 10/30/24 16:46 BP 129/72 10/30/24 16:46 Pulse Ox 94 10/30/24 16:46 O2 Del Method Room Air 10/30/24 03:37 Discharge Plan Discharge Patient Disposition: Left Against Medical Advice Condition: Stable Prescriptions: New Eliquis 5 mg tablet 5 mg PO BID 30 Days Qty: 60 0RF Continued cyclobenzaprine 10 mg tablet 10 mg PO TID PRN (Reason: Muscle pain or Spasm) levothyroxine 137 mcg tablet 137 mcg PO QAM gabapentin 600 mg tablet 600 mg PO TID ondansetron HCl 4 mg tablet 4 mg PO Q8H PRN (Reason: Nausea And Vomiting) hydrocodone-acetaminophen [[place]] 10-325 mg Tablet 1 tab PO .Q4-6HQ4H PRN (Reason: Pain) potassium chloride [Klor-Con M20] 20 mEq tablet,ER particles/crystals 20 meq PO DAILY furosemide 20 mg tablet 40 mg PO DAILY duloxetine 60 mg capsule,delayed release(DR/EC) 60 mg PO DAILY cholecalciferol (vitamin D3) 50 mcg (2,000 unit) capsule 50 mcg PO DAILY Discontinued nifedipine 60 mg tablet extended release 60 mg PO BID Referrals: Corbin Schulz DO [Primary Care Provider, [facility]] Discharge Diet: Cardiac Discharge Activity: Resume usual activity Patient Instructions: Opioid Safety, Patient Portal & [facility]ian Instructions Activity Restrictions/Additional Instructions: - Please use Eliquis as prescribed -Monitor for bloody black stools if so go to the emergency room - Please avoid being given that you are on blood thinners and IV antibiotics - Would use a form of contraception - Please hold nifedipine - Please continue Lasix 40 mg daily with potassium - Please follow-up with infectious disease at [place] - Please follow-up with CT surgery at [place] -For your splenic abscess versus infarct, please follow-up with infectious disease at [place] -If any fevers or chills go to emergency room -Avoid any alcoholism, avoid any drug use -If you have thoughts of killing yourself or others please call 911 Discharge Attestations Time Spent in Discharge Care*: greater than 30 min Quality Metrics Clinical Quality Measures [ No reported AMI, CVA or VTE this stay] Coding Level of Care Code 91493 Total time (in minutes) for Discharge: 45 Diagnoses Bilateral edema of lower extremity R60.0
--- NOTE | 2024-10-30 18:20 | PC.NURSE ---
dr apple contacted rn regarding late discharge instructions for pt...pt notified of new medication...eliquis,which will be at [facility] pharmacy....observe for s/sxs of bleeding and report to er if s/sxs gi/gu bleeding occurs.also to use contraception to avoid while on antibiotics and blood thinners.pt verb understanding of instructions
== END 2024-10-30 16:30 | disposition left against medical advice (07) | DRG 641 ==
LOC: ER 11:30 → ICU 16:26 → CSU 17:07
PROVIDERS: Admitting Provider Family Medicine; Emergency Provider Family Medicine; PCP Electrodiagnostic Medicine; Visit Provider Family Medicine
DX: E87.70 Fluid overload, unspecified (principal); M84.454A Pathological fracture, pelvis, initial encounter for fracture; Z53.29 Procedure and treatment not carried out because of patient's decision for other reasons; D73.3 Abscess of spleen; D73.5 Infarction of spleen; F41.1 Generalized anxiety disorder; F32.9 Major depressive disorder, single episode, unspecified; Z87.891 Personal history of nicotine dependence
CPT/HCPCS: 36415; 36592; 71045; 71275; 72195; 74181; 76705; 80053; 80061; 80306; 80307; 81001; 83036; 83605; 83880; 84145; 84443; 84702; 85025; 85730; 86140; 87040; 93005; 93308; 93970; 96372; 99285; 99291; J0690; J1650; J1938; J2060; J2470; J9999

== ENCOUNTER 2024-11-12 08:38 | Oncology outpatient (recurring) (ONCR) | payer BC, MEDICAID, SELFPAY ==
[2024-10-22 09:30] VITALS: BP 112/68; PULSE 113; RESP 20; TEMP 36.3; O2SAT 96
[2024-10-22 10:11] LABS: Hematocrit 31.7 % (36-47); Hemoglobin 10.30 g/dL (11.27-16.99); Mean Corpuscular HGB Conc 32.5 g/dL (30-55); Mean Corpuscular Hemoglobin 29.2 pg (27-33); Mean Corpuscular Volume 89.8 fl (85-98); Nucleated Red Blood Cells % 0 %; Platelet Count 330 10^3/cmm (157-399); Red Blood Count 3.53 10^6/uL (3.85-5.65); White Blood Count 6.54 10^3/uL (3.29-11.43)
[2024-10-22 10:26] LABS: Alanine Aminotransferase < 5 U/L (0-33); Albumin Level 3.6 g/dL (3.5-5.2); Alkaline Phosphatase 195 U/L (35-105); Anion Gap 17.4 (5-19); Aspartate Amino Transferase 21 U/L (0-32); Blood Urea Nitrogen 10 mg/dL (6-20); Calcium 9.3 mg/dL (8.5-10.5); Carbon Dioxide 27 mmol/L (22-29); Chloride 99 mmol/L (98-107); Globulin 3.1 g/dL (1.3-4.6); Glucose 91 mg/dL (65-115); Osmolality Calculated 289 mOsm/kg (285-295); Potassium 3.4 mmol/L (3.5-5.1); Sodium 140 mmol/L (136-145); Total Protein 6.7 g/dL (6.6-8.7)
[2024-10-29 09:42] LABS: Hematocrit 29.7 % (36-47); Hemoglobin 9.70 g/dL (11.27-16.99); Mean Corpuscular HGB Conc 32.7 g/dL (30-55); Mean Corpuscular Hemoglobin 29.3 pg (27-33); Mean Corpuscular Volume 89.7 fl (85-98); Platelet Count 418 10^3/cmm (157-399); Red Blood Count 3.31 10^6/uL (3.85-5.65); White Blood Count 6.47 10^3/uL (3.29-11.43)
[2024-10-29 09:56] LABS: Alanine Aminotransferase < 5 U/L (0-33); Albumin Level 3.6 g/dL (3.5-5.2); Alkaline Phosphatase 173 U/L (35-105); Anion Gap 15.8 (5-19); Aspartate Amino Transferase 18 U/L (0-32); Blood Urea Nitrogen 10 mg/dL (6-20); Calcium 9.5 mg/dL (8.5-10.5); Carbon Dioxide 26 mmol/L (22-29); Chloride 104 mmol/L (98-107); Globulin 2.9 g/dL (1.3-4.6); Glucose 104 mg/dL (65-115); Osmolality Calculated 293 mOsm/kg (285-295); Potassium 3.8 mmol/L (3.5-5.1); Sodium 142 mmol/L (136-145); Total Protein 6.5 g/dL (6.6-8.7)
[2024-10-29 10:28] LABS: Slide Review Slide Review Perform
[2024-10-29 10:29] LABS: Absolute Segmented Neutrophil 3.3 10/cmm (1.6-7.1); Atypical Lymphs 16.0 % (0-5); Band Neutrophils Absolute 0.1 10^3/cmm (0.0-1.2); Macrocytosis 1+; Polychromasia Trace; Total Cells Counted 100 (0-100)
[2024-11-05 10:09] LABS: Hematocrit 31.3 % (36-47); Hemoglobin 10.00 g/dL (11.27-16.99); Mean Corpuscular HGB Conc 31.9 g/dL (30-55); Mean Corpuscular Hemoglobin 28.9 pg (27-33); Mean Corpuscular Volume 90.5 fl (85-98); Nucleated Red Blood Cells % 0 %; Platelet Count 436 10^3/cmm (157-399); Red Blood Count 3.46 10^6/uL (3.85-5.65); White Blood Count 7.26 10^3/uL (3.29-11.43)
[2024-11-05 10:28] LABS: Alanine Aminotransferase < 5 U/L (0-33); Albumin Level 3.7 g/dL (3.5-5.2); Alkaline Phosphatase 169 U/L (35-105); Anion Gap 17.6 (5-19); Aspartate Amino Transferase 19 U/L (0-32); Blood Urea Nitrogen 14 mg/dL (6-20); Calcium 10.1 mg/dL (8.5-10.5); Carbon Dioxide 26 mmol/L (22-29); Chloride 101 mmol/L (98-107); Globulin 3.0 g/dL (1.3-4.6); Glucose 83 mg/dL (65-115); Osmolality Calculated 292 mOsm/kg (285-295); Potassium 3.6 mmol/L (3.5-5.1); Sodium 141 mmol/L (136-145); Total Protein 6.7 g/dL (6.6-8.7)
[2024-11-05 10:42] LABS: Slide Review Slide Review Perform
[2024-11-12 09:31] LABS: Hematocrit 29.6 % (36-47); Hemoglobin 9.70 g/dL (11.27-16.99); Mean Corpuscular HGB Conc 32.8 g/dL (30-55); Mean Corpuscular Hemoglobin 29.0 pg (27-33); Mean Corpuscular Volume 88.4 fl (85-98); Nucleated Red Blood Cells % 0 %; Platelet Count 387 10^3/cmm (157-399); Red Blood Count 3.35 10^6/uL (3.85-5.65); White Blood Count 6.50 10^3/uL (3.29-11.43)
[2024-11-12 09:54] LABS: Alanine Aminotransferase < 5 U/L (0-33); Albumin Level 3.6 g/dL (3.5-5.2); Alkaline Phosphatase 147 U/L (35-105); Anion Gap 16.5 (5-19); Aspartate Amino Transferase 22 U/L (0-32); Blood Urea Nitrogen 11 mg/dL (6-20); Calcium 10.0 mg/dL (8.5-10.5); Carbon Dioxide 24 mmol/L (22-29); Chloride 103 mmol/L (98-107); Globulin 2.9 g/dL (1.3-4.6); Glucose 98 mg/dL (65-115); Osmolality Calculated 289 mOsm/kg (285-295); Potassium 3.5 mmol/L (3.5-5.1); Sodium 140 mmol/L (136-145); Total Protein 6.5 g/dL (6.6-8.7)
== END 2024-11-17 23:59 | disposition home or self-care (01) ==
PROVIDERS: Visit Provider Orthopaedic Surgery Orthopaedic Surgery of the Spine
DX: Z53.9 Procedure and treatment not carried out, unspecified reason; Z86.19 Personal history of other infectious and parasitic diseases
CPT/HCPCS: 36592; 80053; 85007; 85025; 85651; 86140

== ENCOUNTER → 2024-11-20 12:14 | Day surgery (SDC) | payer BC, MEDICAID, SELFPAY ==
[2024-11-20 12:15] VITALS: BP 130/90; PULSE 115; RESP 16; TEMP 36.8; O2SAT 98
--- NOTE | 2024-11-20 12:28 | XR_ITS ---
WS: [id number] XR chest 1V portable [id number] REASON FOR EXAM: Post PICC insertion FINDINGS: Left arm PICC line placement. Tip of the PICC line is in the distal SVC a position appropriate for use. The x- ray technologist was informed of the proper position of the PICC line over the phone at 1:10 p.m. 11/20/2024. Right arm PICC line has been removed compared to 10/29/2024. The chest is otherwise unchanged a small left pleural effusion and minimal left lower lung atelectasis. XR/XR chest 1V portable [id number] IMPRESSION: Left arm PICC line placement as above.
--- NOTE | 2024-11-20 13:36 | PICC.NOTE ---
Single lumen PICC placed to left basilic vein. Referred to vascular access nurse for PICC placement due to right sided PICC placed at outside facility being compromised with extensive external length noted. Cancer treatment center nurses managing weekly dressing changes and lab draws discontinued PICC 11/19/[address] Benz. Pt returns today to OPS for PICC replacement and continued Ancef 2 gm IV every 8 hours given via home infusion through [facility]. Risks and benefits discussed and informed consent obtained from pt. Left arm assessed with left basilic vein measuring 5.1 mm, straight, and apparent best choice for placement. Using sterile technique and MST, left baslic vein accessed x 1 stick. Mid-arm circumference measured 10 cm from left AC 30 cm. Trimmed cath 43 cm with 0 cm external length noted. CXR shows tip in distal SVC, in good position for use per radiologist. Line secured with stat-lock. Insertion site covered with Biopatch and TSM. Pt to return to [facility] on , Nov.26 at 8:30 for weekly dressing change and lab draw. Pt instructed to call for earlier appointment if Biopatch covering insertion site is noted to be saturated with blood. [facility] Infectious disease office updated on PICC insertion as well as [facility] infusion company. Pt verbalized understanding of correct technique for flushing and administering home antibiotic. Written PICC home instructions provided for reinforcement.
== END ==
PROVIDERS: PCP Electrodiagnostic Medicine; Visit Provider Internal Medicine Infectious Disease
DX: R78.81 Bacteremia (principal); B95.61 Methicillin susceptible Staphylococcus aureus infection as the cause of diseases classified elsewhere
CPT/HCPCS: 36573; 71045

== ENCOUNTER 2024-12-17 08:37 | Oncology outpatient (recurring) (ONCR) | payer BC, MEDICAID, SELFPAY ==
[2024-11-19 10:45] LABS: Hematocrit 30.4 % (36-47); Hemoglobin 9.90 g/dL (11.27-16.99); Mean Corpuscular HGB Conc 32.6 g/dL (30-55); Mean Corpuscular Hemoglobin 28.9 pg (27-33); Mean Corpuscular Volume 88.9 fl (85-98); Nucleated Red Blood Cells % 0 %; Platelet Count 362 10^3/cmm (157-399); Red Blood Count 3.42 10^6/uL (3.85-5.65); White Blood Count 8.00 10^3/uL (3.29-11.43)
[2024-11-19 11:03] LABS: Alanine Aminotransferase < 5 U/L (0-33); Albumin Level 3.6 g/dL (3.5-5.2); Alkaline Phosphatase 150 U/L (35-105); Blood Urea Nitrogen 21 mg/dL (6-20); Calcium 10.7 mg/dL (8.5-10.5); Carbon Dioxide 22 mmol/L (22-29); Chloride 106 mmol/L (98-107); Globulin 3.0 g/dL (1.3-4.6); Glucose 94 mg/dL (65-115); Osmolality Calculated 297 mOsm/kg (285-295); Sodium 142 mmol/L (136-145); Total Protein 6.6 g/dL (6.6-8.7)
[2024-11-19 11:08] LABS: Anion Gap 18.5 (5-19); Aspartate Amino Transferase 20 U/L (0-32); Potassium 4.5 mmol/L (3.5-5.1)
[2024-11-19 11:48] LABS: Slide Review Slide Review Perform
[2024-11-26 09:33] LABS: Hematocrit 28.0 % (36-47); Hemoglobin 9.20 g/dL (11.27-16.99); Mean Corpuscular HGB Conc 32.9 g/dL (30-55); Mean Corpuscular Hemoglobin 29.7 pg (27-33); Mean Corpuscular Volume 90.3 fl (85-98); Nucleated Red Blood Cells % 0 %; Platelet Count 306 10^3/cmm (157-399); Red Blood Count 3.10 10^6/uL (3.85-5.65); White Blood Count 7.17 10^3/uL (3.29-11.43)
[2024-11-26 09:53] LABS: Alanine Aminotransferase < 5 U/L (0-33); Albumin Level 3.9 g/dL (3.5-5.2); Alkaline Phosphatase 147 U/L (35-105); Blood Urea Nitrogen 19 mg/dL (6-20); Calcium 11.5 mg/dL (8.5-10.5); Carbon Dioxide 22 mmol/L (22-29); Chloride 105 mmol/L (98-107); Globulin 2.6 g/dL (1.3-4.6); Glucose 116 mg/dL (65-115); Osmolality Calculated 293 mOsm/kg (285-295); Sodium 140 mmol/L (136-145); Total Protein 6.5 g/dL (6.6-8.7)
[2024-11-26 09:57] LABS: Anion Gap 17.8 (5-19); Aspartate Amino Transferase 26 U/L (0-32); Potassium 4.8 mmol/L (3.5-5.1)
--- NOTE | 2024-11-26 10:03 | PC.NURSE ---
Patient requests that labs be sent to Dr Schulz as well as [facility] from now on. Dr Schulz is her primary care physician, manages her medications other than antibiotics.
[2024-12-08 08:58] LABS: Hematocrit 31.5 % (36-47); Hemoglobin 10.40 g/dL (11.27-16.99); Mean Corpuscular HGB Conc 33.0 g/dL (30-55); Mean Corpuscular Hemoglobin 29.0 pg (27-33); Mean Corpuscular Volume 87.7 fl (85-98); Nucleated Red Blood Cells % 0 %; Platelet Count 346 10^3/cmm (157-399); Red Blood Count 3.59 10^6/uL (3.85-5.65); White Blood Count 6.16 10^3/uL (3.29-11.43)
[2024-12-08 09:17] LABS: Alanine Aminotransferase < 5 U/L (0-33); Albumin Level 4.3 g/dL (3.5-5.2); Alkaline Phosphatase 166 U/L (35-105); Aspartate Amino Transferase 20 U/L (0-32); Blood Urea Nitrogen 21 mg/dL (6-20); Calcium 10.5 mg/dL (8.5-10.5); Carbon Dioxide 23 mmol/L (22-29); Chloride 106 mmol/L (98-107); Globulin 2.8 g/dL (1.3-4.6); Glucose 82 mg/dL (65-115); Osmolality Calculated 298 mOsm/kg (285-295); Sodium 143 mmol/L (136-145); Total Protein 7.1 g/dL (6.6-8.7)
[2024-12-08 09:18] LABS: Anion Gap 17.8 (5-19); Potassium 3.8 mmol/L (3.5-5.1)
[2024-12-10 08:58] LABS: Hematocrit 29.5 % (36-47); Hemoglobin 9.70 g/dL (11.27-16.99); Mean Corpuscular HGB Conc 32.9 g/dL (30-55); Mean Corpuscular Hemoglobin 28.5 pg (27-33); Mean Corpuscular Volume 86.8 fl (85-98); Nucleated Red Blood Cells % 0 %; Platelet Count 322 10^3/cmm (157-399); Red Blood Count 3.40 10^6/uL (3.85-5.65); White Blood Count 6.29 10^3/uL (3.29-11.43)
[2024-12-10 09:15] LABS: Alanine Aminotransferase < 5 U/L (0-33); Albumin Level 3.9 g/dL (3.5-5.2); Alkaline Phosphatase 172 U/L (35-105); Anion Gap 19.6 (5-19); Aspartate Amino Transferase 20 U/L (0-32); Blood Urea Nitrogen 22 mg/dL (6-20); Calcium 10.1 mg/dL (8.5-10.5); Carbon Dioxide 20 mmol/L (22-29); Chloride 106 mmol/L (98-107); Globulin 2.5 g/dL (1.3-4.6); Glucose 130 mg/dL (65-115); Osmolality Calculated 299 mOsm/kg (285-295); Potassium 3.6 mmol/L (3.5-5.1); Sodium 142 mmol/L (136-145); Total Protein 6.4 g/dL (6.6-8.7)
[2024-12-10 11:55] VITALS: BP 138/88; PULSE 76; RESP 16; TEMP 36.6; O2SAT 94
[2024-12-17 09:07] VITALS: BP 108/72; PULSE 76; RESP 16; O2SAT 96
[2024-12-17 09:14] LABS: Hematocrit 31.0 % (36-47); Hemoglobin 10.20 g/dL (11.27-16.99); Mean Corpuscular HGB Conc 32.9 g/dL (30-55); Mean Corpuscular Hemoglobin 28.4 pg (27-33); Mean Corpuscular Volume 86.4 fl (85-98); Nucleated Red Blood Cells % 0 %; Platelet Count 326 10^3/cmm (157-399); Red Blood Count 3.59 10^6/uL (3.85-5.65); White Blood Count 5.80 10^3/uL (3.29-11.43)
[2024-12-17 09:30] LABS: Alanine Aminotransferase < 5 U/L (0-33); Albumin Level 4.1 g/dL (3.5-5.2); Alkaline Phosphatase 182 U/L (35-105); Anion Gap 16.1 (5-19); Aspartate Amino Transferase 17 U/L (0-32); Blood Urea Nitrogen 18 mg/dL (6-20); Calcium 9.7 mg/dL (8.5-10.5); Carbon Dioxide 22 mmol/L (22-29); Chloride 106 mmol/L (98-107); Globulin 2.6 g/dL (1.3-4.6); Glucose 106 mg/dL (65-115); Osmolality Calculated 292 mOsm/kg (285-295); Potassium 4.1 mmol/L (3.5-5.1); Sodium 140 mmol/L (136-145); Total Protein 6.7 g/dL (6.6-8.7)
== END 2024-12-18 23:59 | disposition home or self-care (01) ==
PROVIDERS: PCP Electrodiagnostic Medicine; Visit Provider Orthopaedic Surgery Orthopaedic Surgery of the Spine
DX: Z86.19 Personal history of other infectious and parasitic diseases; Z53.9 Procedure and treatment not carried out, unspecified reason
CPT/HCPCS: 36415; 36592; 80053; 85025; 85651; 86140

== ENCOUNTER 2024-12-29 15:00 | Oncology outpatient (recurring) (ONCR) | payer BC, MEDICAID, SELFPAY ==
[2024-12-24 10:00] LABS: Hematocrit 30.5 % (36-47); Hemoglobin 10.10 g/dL (11.27-16.99); Mean Corpuscular HGB Conc 33.1 g/dL (30-55); Mean Corpuscular Hemoglobin 29.3 pg (27-33); Mean Corpuscular Volume 88.4 fl (85-98); Nucleated Red Blood Cells % 0 %; Platelet Count 310 10^3/cmm (157-399); Red Blood Count 3.45 10^6/uL (3.85-5.65); White Blood Count 7.01 10^3/uL (3.29-11.43)
[2024-12-24 10:15] LABS: Alanine Aminotransferase < 5 U/L (0-33); Albumin Level 3.8 g/dL (3.5-5.2); Alkaline Phosphatase 181 U/L (35-105); Anion Gap 15.0 (5-19); Aspartate Amino Transferase 19 U/L (0-32); Blood Urea Nitrogen 14 mg/dL (6-20); Calcium 9.2 mg/dL (8.5-10.5); Carbon Dioxide 22 mmol/L (22-29); Chloride 106 mmol/L (98-107); Globulin 2.5 g/dL (1.3-4.6); Glucose 112 mg/dL (65-115); Osmolality Calculated 289 mOsm/kg (285-295); Potassium 4.0 mmol/L (3.5-5.1); Sodium 139 mmol/L (136-145); Total Protein 6.3 g/dL (6.6-8.7)
[2024-12-29 14:50] LABS: Hematocrit 31.4 % (36-47); Hemoglobin 10.50 g/dL (11.27-16.99); Mean Corpuscular HGB Conc 33.4 g/dL (30-55); Mean Corpuscular Hemoglobin 29.2 pg (27-33); Mean Corpuscular Volume 87.5 fl (85-98); Nucleated Red Blood Cells % 0 %; Platelet Count 340 10^3/cmm (157-399); Red Blood Count 3.59 10^6/uL (3.85-5.65); White Blood Count 5.81 10^3/uL (3.29-11.43)
[2024-12-29 15:10] LABS: Alanine Aminotransferase 11 U/L (0-33); Albumin Level 4.1 g/dL (3.5-5.2); Alkaline Phosphatase 214 U/L (35-105); Aspartate Amino Transferase 24 U/L (0-32); Blood Urea Nitrogen 15 mg/dL (6-20); Calcium 9.6 mg/dL (8.5-10.5); Carbon Dioxide 23 mmol/L (22-29); Chloride 102 mmol/L (98-107); Globulin 2.7 g/dL (1.3-4.6); Glucose 122 mg/dL (65-115); Osmolality Calculated 290 mOsm/kg (285-295); Sodium 139 mmol/L (136-145); Total Protein 6.8 g/dL (6.6-8.7)
[2024-12-29 15:12] LABS: Anion Gap 18.1 (5-19); Potassium 4.1 mmol/L (3.5-5.1)
== END 2025-01-17 23:59 | disposition home or self-care (01) ==
PROVIDERS: PCP Electrodiagnostic Medicine; Visit Provider Orthopaedic Surgery Orthopaedic Surgery of the Spine
DX: Z86.19 Personal history of other infectious and parasitic diseases; Z53.9 Procedure and treatment not carried out, unspecified reason
CPT/HCPCS: 36592; 80053; 85025

== ENCOUNTER 2025-01-07 11:46 | Outpatient (CLI) | payer BC, MEDICAID, SELFPAY ==
--- NOTE | 2025-01-07 11:53 | MR_ITS ---
WS: [id number] MRI LUMBAR SPINE WITH AND WITHOUT CONTRAST HISTORY: SPINAL EPIDUAL ABSCESS COMPARISON: 10/26/2024 and 07/11/2024 TECHNIQUE: Sagittal and axial multisequence imaging is submitted. Fusion hardware posteriorly at L5 into the upper sacrum. Low signal within a large portion of the L5 vertebral body. There is also increased signal on the STIR sequences within L5. The remaining vertebral bodies are normal. Edema persists in the posterior paravertebral soft tissues but there has been an improvement since 10/26/2024. Residual abscess noted in the region of the RIGHT hemilaminectomy defect at L4-5. There is increased fluid in the RIGHT L4-5 facet joint. Residual abscess measures 1.5 x 1.8 cm. Abscess has significantly improved since the prior study. There is less extension into the epidural space. Small residual abscess in the epidural space centered at L3-4 to the inferior endplate of L4 measures 3.5 x 0.6 cm. Continued enhancement posteriorly along the surgical site beginning at the L1 level. The enhancement is predominantly surrounding the pedicles and extending to the facet joints. There is a small amount of enhancement in the L5 vertebral body. MR/MR lumbar spine wo/w con [id number] IMPRESSION: 1. Overall improvement in the cellulitis and epidural abscess as compared to . 2. Residual abscess in the RIGHT hemilaminectomy defect at L4-5 extends into t he epidural space. Abscess measures 1.5 x 1.8 cm. 3. Smaller but improved posterior epidural abscess at the L3-4 level measures 3.5 x 0.6 cm. 4. Diffuse cellulitis along the posterior lumbar spine is also improving. Soft tissue enhancement extends to surround the spinous processes and abuts the pos terior facets. 5. Edema with enhancement involving the L5 vertebral body suspicious for osteo myelitis.
[2025-01-07] MEDS: gadobenate dimeglumine 20 mL vial IV (12:28)
== END 2025-01-07 11:47 | disposition home or self-care (01) ==
LOC: RAD 11:47
PROVIDERS: PCP Electrodiagnostic Medicine; Visit Provider Nurse Practitioner Family
DX: G06.1 Intraspinal abscess and granuloma (principal); M96.89 Other intraoperative and postprocedural complications and disorders of the musculoskeletal system; R93.7 Abnormal findings on diagnostic imaging of other parts of musculoskeletal system; R60.0 Localized edema; Z98.890 Other specified postprocedural states; L03.818 Cellulitis of other sites
CPT/HCPCS: 72158; A9577